=== PATIENT | male | born 1975 | race Caucasian/White ===

== ENCOUNTER 2019-02-03 08:30 | Inpatient (IN) | payer OTHER ==
[2019-02-03 08:51] VITALS: BMI 29.3
--- NOTE | 2019-02-03 09:16 | HP ---
COWS - Scale Resting Pulse: 1= [place] 81-100 Sweatin= Chills/Flushing Restless Observation: 1= Difficult to Sit Still Pupil Size: 1= Pupils >than Normal Bone or Joint Aches: 1= Mild Discomfort Runny Nose/ Eye Tearin= Runny Nose/Eyes GI Upset > 30mins: 1= Stomach Cramp Tremor Observation: 1= Tremor [place], Not Seen Yawning Observation: 1= 1-2x During Session Anxiety or Irritability: 2=Irritable/Anxious Goose Flesh Skin: 0=Smooth Skin COWS Score: 12 CIWA Score Nausea/Vomitin Muscle Tremors: 1-None Visible, but [place] Anxiety: 4-Mod. Anxious/Guarded Agitation: 3 Paroxysmal Sweats: No Perspiration Orientation: 2-Disoriented Date<2 days Tacttile Disturbances: 0-None Auditory Disturbances: 0-None Visual Disturbances: 0-None Headache: 3-Moderate CIWA-Ar Total Score: 16 - Admission Criteria OASAS Guidelines: Admission for Medically Managed Detox: Requires at least one of the followin. CIWA greater than 12 2. Seizures within the past 24 hours 3. Delirium tremens within the past 24 hours 4. Hallucinations within the past 24 hours 5. Acute intervention needed for co occurring medical disorder 6. Acute intervention needed for co occurring psychiatric disorder 7. Severe withdrawal that cannot be handled at a lower level of care (continued vomiting, continued diarrhea, abnormal vital signs) requiring intravenous medication and/or fluids 8. Admitting History and Physical - Admission Chief Complaint: " I want to stop drinking for myself and for my daughter" History of Present Illness: 43 year old male with history of opioid dependence with withdrawals. He was in methadone program at [facility] but left 11/2018 and then relapsed 3 weeks ago. Now he is using heroin 3-4 bags daily intranasally. Denies overdoses. He also has alcohol dependence with withdrawals. He is drinking 1-2 pints of vodka daily since 6 years old but became problematic at the age of 31's, last drank yesterday. He denies any blackouts or seizures but feels he needs a controlled environment to stop again and then proceed to rehabilitation and perhaps complete abstinence. However, he may decide to return to an MAT. He smokes ciggarettes 1/2 pack per day since the age of 20. PMH: HCV not treated, Kidney transplant due to CKD PSurg: Renal transplant 5 years ago. PSych: None He is homeless because threw him out of the house. He has 1 daughter and wants to get better for her. Patient has no legal issues pending. History Source: Patient Limitations to Obtaining History: No Limitations - Past Medical History Renal/: Yes: Renal Inusuff, Other (renal transplant recipient) Infectious Disease: Yes: Other (HCV Disease untreated) - Past Surgical History Past Surgical History: Yes: Appendectomy, Kidney Transplant - Advance Directives Advance Directives: No: Living Will, Health Care Proxy, DNR - Smoking History Smoking history: Current every day smoker Have you smoked in the past 12 months: Yes Aproximately how many cigarettes per day: 5 - Alcohol/Substance Use Hx Alcohol Use: Yes (1 pint per day of vodka) Number of Drinks Daily: 10 History of Substance Use: reports: Heroin Date of Last Use: 02/02/19 - Social History Usual Living Arrangement: Yes: Alone Do you think of yourself as: Straight/Heterosexual ADL: Independent Occupation: construction but unemployed now History of Recent Travel: No Admission [facility] Allergies/Adverse Reactions: Allergies Allergy/AdvReac Type Severity Reaction Status Date / Time No Known Allergies Allergy Verified 02/03/19 08:45 Exam Limitations: No Limitations - Ebola screening Have you traveled outside of the country in the last 21 days: No Have you had contact with anyone from an Ebola affected area: No Have you been sick,other than usual withdrawal symptoms: No Do you have a fever: No - Review of Systems Constitutional: Chills, Diaphoresis, Loss of Appetite, Changes in sleep EENT: reports: No Symptoms Reported Respiratory: reports: No Symptoms reported Cardiac: reports: No Symptoms Reported GI: reports: Nausea, Indigestion, Abdominal cramping : reports: No Symptoms Reported Musculoskeletal: reports: No Symptoms Reported Integumentary: reports: No Symptoms Reported Neuro: reports: No Symptoms reported Endocrine: reports: No Symptoms Reported Hematology: reports: No Symptoms Reported Psychiatric: reports: Judgement Intact, Mood/Affect Appropiate, Orientated x3 Other Systems: Reviewed and Negative Patient History - Patient Medical History Hx Anemia: No Hx Asthma: No Hx Chronic Obstructive Pulmonary Disease (COPD): No Hx Cancer: No Hx Cardiac Disorders: No Hx Congestive Heart Failure: No Hx Hypertension: No Hx Hypercholesterolemia: No Hx Pacemaker: No HX Cerebrovascular Accident: No Hx Seizures: No Hx Dementia: No Hx Diabetes: No Hx Gastrointestinal Disorders: No Hx Liver Disease: No Hx Genitourinary Disorders: No Hx Sexually Transmitted Disorders: No Hx Renal Disease (ESRD): Yes (renal transplant patient) Hx Thyroid Disease: No Hx Human Immunodeficiency Virus (HIV): No Hx Hepatitis C: Yes (positive and untreated) Hx Depression: No Hx Suicide Attempt: No Hx Bipolar Disorder: No Hx Schizophrenia: No - Patient Surgical History Past Surgical History: Yes Hx Abdominal Surgery: Yes (appendectomy) Other Surgical History: renal transplantation 5 years ago - PPD History Previous Implant?: Yes Documented Results: Negative w/o proof Implanted On Prior R Admission?: No Date: 01/29/18 ([facility]) Results: negative PPD to be Administered?: Yes - Smoking Cessation Smoking history: Current every day smoker Aproximately how many cigarettes per day: 5 Hx Chewing Tobacco Use: No Initiated information on smoking cessation: Yes 'Breaking Loose' booklet given: 02/03/19 - Substances abused Alcohol Substance route: Oral Frequency: Daily Amount used: 1 pint of vodka Age of first use: 20 Date of last use: 02/02/19 Heroin Substance route: Inhalation Frequency: Daily Amount used: 2 bags Age of first use: 20 Date of last use: 02/02/19 Admission Physical Exam BHS - Vital Signs Vital Signs: Vital Signs - 24 hr 02/03/19 08:45 Temperature 97.1 F L Pulse Rate 77 Respiratory 16 Rate Blood Pressure 160/105 H - Physical General Appearance: Yes: Mild Distress HEENTM: Yes: EOMI, Hearing grossly Normal, Normal ENT Inspection, Normocephalic , GLORIA, Pharynx Normal, Tm's normal Respiratory: Yes: Chest Non-Tender, Lungs Clear, Normal Breath Sounds, No Respiratory Distress, No Accessory Muscle Use Neck: Yes: Within Normal Limits, No masses,lesions,Nodules, Supple, Trachea in good position Breast: Yes: Within Normal Limits Cardiology: Yes: Regular Rhythm, Regular Rate, S1, S2 Abdominal: Yes: Non Tender, Soft, Increased Bowel Sounds, Protuberent Genitourinary: Yes: Within Normal Limits Back: Yes: Normal Inspection Musculoskeletal: Yes: full range of Motion, Gait Steady, Pelvis Stable Extremities: Yes: Normal Capillary Refill, Normal Inspection, Normal Range of Motion, Non-Tender Neurological: Yes: manager bench II-XII NML intact, Fully Oriented, Alert, Motor Strength 5/5, Normal Mood/Affect, Normal Response Integumentary: Yes: Normal Color, Warm - Diagnostic (1) Opioid dependence with withdrawal Current Visit: Yes Status: Acute (2) Alcohol dependence with withdrawal Current Visit: Yes Status: Acute (3) Nicotine dependence Current Visit: Yes Status: Acute (4) Kidney transplant recipient Current Visit: Yes Status: Acute Cleared for Admission [facility] - Detox or Rehab [facility] Level of Care: Medically Managed Detox Regimen/Protocol: Methadone/Librium Claeared for Rehab Admission: No Screened but not Admitted - Documentation of Visit Screened but not Admitted: No Breathalyzer - Breathalyzer Breathalyzer: 0 (last drank yesterday) Urine Drug Screen - Control Is test valid?: Yes - Results Drug screen NEGATIVE: No Urine drug screen results: MOP-Opiates, MTD-Methadone, BZO-Benzodiazepines Inpatient Rehab Admission - Rehab Decision to Admit Inpatient rehab admission?: No
[2019-02-03] MEDS ORDERED: hydrOXYzine PAMOATE 25 MG CAPSULE (FP) PO PRN (09:30)
[2019-02-03] MEDS ORDERED: chlordiazePOXIDE HCL 25 MG CAPSULE PO PRN (09:30)
[2019-02-03] MEDS ORDERED: METHOCARBAMOL 500 MG TABLET PO PRN (09:30)
[2019-02-03] MEDS ORDERED: MENTHOL/PHENOL 1 EACH UD MM PRN (09:30)
[2019-02-03] MEDS ORDERED: cloNIDine HCL 0.1 MG TABLET PO PRN (09:30)
[2019-02-03] MEDS ORDERED: ACETAMINOPHEN 325 MG TABLET (FP) PO PRN ×2 (09:30)
[2019-02-03] MEDS ORDERED: MAGNESIUM HYDROX 2400MG/30ML ORAL SUSPENSION 30 ML CUP PO PRN (09:30)
[2019-02-03] MEDS ORDERED: METHADONE HCL 10 MG TABLET (FOR DETOX USE ONLY) PO ONE (09:30)
[2019-02-03] MEDS ORDERED: MAGNESIUM CITRATE 300 ML BOTTLE PO PRN (09:30)
[2019-02-03] MEDS ORDERED: IBUPROFEN 400 MG TABLET (FP) PO PRN (09:30)
[2019-02-03] MEDS: chlordiazePOXIDE HCL 25 MG CAPSULE PO SCH ×3 (11:51→22:01)
[2019-02-03] MEDS: NICOTINE 14 MG/24 HOURS TOPICAL PATCH TD SCH (11:55)
[2019-02-03] MEDS: PRENATAL VITAMINS W/ FOLIC ACID TABLET (FP) PO SCH (11:55)
[2019-02-03 12:45] LABS: HEMATOCRIT 44.4 % (35.4-49); HEMOGLOBIN 15.1 GM/dL (11.7-16.9); MCH 30.3 pg (25.7-33.7); MEAN CELL VOLUME 89.1 fl (80-96); MEAN PLT VOLUME 9.2 fl (7.5-11.1); PLATELET COUNT 140 K/MM3 (134-434); RBC 4.98 M/mm3 (4.00-5.60); RDW 14.4 % (11.9-15.9); WHITE BLOOD COUNT 6.4 K/mm3 (4.0-10.0)
[2019-02-03 12:56] LABS: ALBUMIN 3.4 g/dl (3.4-5.0); BLOOD UREA NITROGEN 17.8 mg/dL (7-18); CREATININE 1.1 mg/dL (0.55-1.3); POTASSIUM 4.1 mmol/L (3.5-5.1); TOT PROT 9.2 g/dl (6.4-8.2)
[2019-02-03] MEDS: THIAMINE HCL 100 MG TABLET (FP) PO SCH (21:25)
[2019-02-04] MEDS: chlordiazePOXIDE HCL 25 MG CAPSULE PO SCH ×4 (05:59→22:01)
[2019-02-04] MEDS ORDERED: METHADONE HCL 10 MG TABLET (FOR DETOX USE ONLY) ONE (08:44)
[2019-02-04] MEDS ORDERED: METHADONE HCL 5 MG TABLET (FOR DETOX USE ONLY) ONE (08:44)
[2019-02-04] MEDS ORDERED: METHADONE (DETOX) 20 MG, METHADONE (DETOX) 5 MG PO ONE (10:00)
[2019-02-04] MEDS: PRENATAL VITAMINS W/ FOLIC ACID TABLET (FP) PO SCH (10:41)
[2019-02-04] MEDS: NICOTINE 14 MG/24 HOURS TOPICAL PATCH TD SCH (10:43)
--- NOTE | 2019-02-04 12:12 | PN ---
S CIWA - CIWA Score Nausea/Vomitin-Mild Nausea/No Vomiting Muscle Tremors: 2 Anxiety: 3 Agitation: 1-Slight > Activity Paroxysmal Sweats: 2 Orientation: 1-Uncertain about Date Tacttile Disturbances: 1-Very Mild Itch/Numbness Auditory Disturbances: 0-None Visual Disturbances: 0-None Headache: 1-Very Mild CIWA-Ar Total Score: 12 BHS COWS - Scale Resting Pulse: 0= [place] 80 or Below Sweatin= Chills/Flushing Restless Observation: 0= Sits Still Pupil Size: 0= Normal to Room Light Bone or Joint Aches: 1= Mild Discomfort Runny Nose/ Eye Tearin= Nasal Congestion GI Upset > 30mins: 1= Stomach Cramp Tremor Observation of Outstretched Hands: 2= Slight Tremor Visible Yawning Observation: 1= 1-2x During Session Anxiety or Irritability: 2=Irritable/Anxious Goose Flesh Skin: 3=Piloerection COWS Score: 12 S Progress Note (SOAP) Subjective: 43 years old male admitted on 02/03/19 for alcohol and opiate withdrawal sx management treated with librium and methadone detox regimen ate breakfast resting on bed feeling tired limited conversation with staff Objective: 02/04/19 12:12 Vital Signs Temperature 98.0 F 02/04/19 09:09 Pulse Rate 78 02/04/19 09:09 Respiratory Rate 18 02/04/19 09:09 Blood Pressure 147/94 02/04/19 09:09 O2 Sat by Pulse Oximetry (%) Laboratory Last Values WBC 6.4 K/mm3 (4.0-10.0) 02/03/19 09:30 RBC 4.98 M/mm3 (4.00-5.60) 02/03/19 09:30 Hgb 15.1 GM/dL (11.7-16.9) 02/03/19 09:30 Hct 44.4 % (35.4-49) 02/03/19 09:30 MCV 89.1 fl (80-96) 02/03/19 09:30 MCH 30.3 pg (25.7-33.7) 02/03/19 09:30 MCHC 34.0 g/dl (32.0-35.9) 02/03/19 09:30 RDW 14.4 % (11.9-15.9) 02/03/19 09:30 Plt Count 140 K/MM3 (134-434) 02/03/19 09:30 MPV 9.2 fl (7.5-11.1) 02/03/19 09:30 Sodium 134 mmol/L (136-145) L 02/03/19 09:30 Potassium 4.1 mmol/L (3.5-5.1) 02/03/19 09:30 Chloride 104 mmol/L (98-107) 02/03/19 09:30 Carbon Dioxide 26 mmol/L (21-32) 02/03/19 09:30 Anion Gap 4 MMOL/L (8-16) L 02/03/19 09:30 BUN 17.8 mg/dL (7-18) 02/03/19 09:30 Creatinine 1.1 mg/dL (0.55-1.3) 02/03/19 09:30 Est GFR (CKD-EPI)AfAm 95.46 02/03/19 09:30 Est GFR (CKD-EPI)NonAf 82.36 02/03/19 09:30 Random Glucose 106 mg/dL (74-106) 02/03/19 09:30 Calcium 9.0 mg/dL (8.5-10.1) 02/03/19 09:30 Total Bilirubin 1.0 mg/dL (0.2-1) 02/03/19 09:30 AST 61 U/L (15-37) H 02/03/19 09:30 ALT 43 U/L (13-61) 02/03/19 09:30 Alkaline Phosphatase 85 U/L (45-117) 02/03/19 09:30 Total Protein 9.2 g/dl (6.4-8.2) H 02/03/19 09:30 Albumin 3.4 g/dl (3.4-5.0) 02/03/19 09:30 RPR Titer Nonreactive (NONREACTIVE) 02/03/19 09:30 HIV 1&2 Antibody Screen Negative 02/03/19 10:20 HIV P24 Antigen Negative 02/03/19 10:20 lab noted Assessment: 02/04/19 12:12 alcohol and opiate withdrawal sx Plan: continue librium detox regimen
[2019-02-04] MEDS: THIAMINE HCL 100 MG TABLET (FP) PO SCH (22:01)
[2019-02-05] MEDS: chlordiazePOXIDE HCL 25 MG CAPSULE PO SCH ×4 (05:50→22:02)
[2019-02-05] MEDS ORDERED: METHADONE HCL 10 MG TABLET (FOR DETOX USE ONLY) PO ONE (10:00)
[2019-02-05] MEDS: PRENATAL VITAMINS W/ FOLIC ACID TABLET (FP) PO SCH (10:11)
[2019-02-05] MEDS: NICOTINE 14 MG/24 HOURS TOPICAL PATCH TD SCH (10:14)
--- NOTE | 2019-02-05 12:49 | PN ---
[facility] CIWA - CIWA Score Nausea/Vomitin-Mild Nausea/No Vomiting Muscle Tremors: 1-None Visible, but [place] Anxiety: 2 Agitation: 2 Paroxysmal Sweats: No Perspiration Orientation: 0-Oriented Tacttile Disturbances: 1-Very Mild Itch/Numbness Auditory Disturbances: 0-None Visual Disturbances: 0-None Headache: 1-Very Mild CIWA-Ar Total Score: 8 BHS COWS - Scale Resting Pulse: 1= [place] 81-100 Sweatin= No chills or Flushing Restless Observation: 1= Difficult to Sit Still Pupil Size: 1= Pupils >than Normal Bone or Joint Aches: 1= Mild Discomfort Runny Nose/ Eye Tearin= Nasal Congestion GI Upset > 30mins: 1= Stomach Cramp Tremor Observation of Outstretched Hands: 1= Tremor [place], Not Seen Yawning Observation: 1= 1-2x During Session Anxiety or Irritability: 1=Feels Anxious/Irritable Goose Flesh Skin: 0=Smooth Skin COWS Score: 9 [facility] Progress Note (SOAP) Subjective: alert,irrritable,anxious,interrupted sleep,pain in the body and back Objective: 02/05/19 12:53 Vital Signs Temperature 96.7 F L 02/05/19 09:06 Pulse Rate 83 02/05/19 09:06 Respiratory Rate 18 02/05/19 09:06 Blood Pressure 126/81 02/05/19 09:06 O2 Sat by Pulse Oximetry (%) Laboratory Last Values WBC 6.4 K/mm3 (4.0-10.0) 02/03/19 09:30 RBC 4.98 M/mm3 (4.00-5.60) 02/03/19 09:30 Hgb 15.1 GM/dL (11.7-16.9) 02/03/19 09:30 Hct 44.4 % (35.4-49) 02/03/19 09:30 MCV 89.1 fl (80-96) 02/03/19 09:30 MCH 30.3 pg (25.7-33.7) 02/03/19 09:30 MCHC 34.0 g/dl (32.0-35.9) 02/03/19 09:30 RDW 14.4 % (11.9-15.9) 02/03/19 09:30 Plt Count 140 K/MM3 (134-434) 02/03/19 09:30 MPV 9.2 fl (7.5-11.1) 02/03/19 09:30 Sodium 134 mmol/L (136-145) L 02/03/19 09:30 Potassium 4.1 mmol/L (3.5-5.1) 02/03/19 09:30 Chloride 104 mmol/L (98-107) 02/03/19 09:30 Carbon Dioxide 26 mmol/L (21-32) 02/03/19 09:30 Anion Gap 4 MMOL/L (8-16) L 02/03/19 09:30 BUN 17.8 mg/dL (7-18) 02/03/19 09:30 Creatinine 1.1 mg/dL (0.55-1.3) 02/03/19 09:30 Est GFR (CKD-EPI)AfAm 95.46 02/03/19 09:30 Est GFR (CKD-EPI)NonAf 82.36 02/03/19 09:30 Random Glucose 106 mg/dL (74-106) 02/03/19 09:30 Calcium 9.0 mg/dL (8.5-10.1) 02/03/19 09:30 Total Bilirubin 1.0 mg/dL (0.2-1) 02/03/19 09:30 AST 61 U/L (15-37) H 02/03/19 09:30 ALT 43 U/L (13-61) 02/03/19 09:30 Alkaline Phosphatase 85 U/L (45-117) 02/03/19 09:30 Total Protein 9.2 g/dl (6.4-8.2) H 02/03/19 09:30 Albumin 3.4 g/dl (3.4-5.0) 02/03/19 09:30 RPR Titer Nonreactive (NONREACTIVE) 02/03/19 09:30 HIV 1&2 Antibody Screen Negative 02/03/19 10:20 HIV P24 Antigen Negative 02/03/19 10:20 Assessment: 02/05/19 12:53 withdrawal symptom Plan: continue detox methadone and librium regimen
[2019-02-05] MEDS: BACITRACIN 15 GM TUBE TOPICAL OINTMENT TP SCH (17:41)
[2019-02-05] MEDS: MELATONIN 5 MG TABLETS PO PRN (22:02)
[2019-02-05] MEDS: THIAMINE HCL 100 MG TABLET (FP) PO SCH (22:02)
[2019-02-06] MEDS ORDERED: chlordiazePOXIDE HCL 10 MG CAPSULE PO PRN
[2019-02-06] MEDS: chlordiazePOXIDE HCL 10 MG CAPSULE PO SCH ×4 (05:33→22:35)
[2019-02-06] MEDS: MAG HYDROX/AL HYDROX/SIMETH 30 ML UNIT-DOSE CUP PO PRN (05:34)
[2019-02-06] MEDS ORDERED: METHADONE HCL 10 MG TABLET (FOR DETOX USE ONLY) ONE (08:54)
[2019-02-06] MEDS ORDERED: METHADONE HCL 5 MG TABLET (FOR DETOX USE ONLY) ONE (08:54)
[2019-02-06] MEDS: BISMUTH SUBSALICYLATE 262 MG/15 ML BTL PO PRN (09:23)
[2019-02-06] MEDS ORDERED: METHADONE (DETOX) 10 MG, METHADONE (DETOX) 5 MG PO ONE (10:00)
[2019-02-06] MEDS: PRENATAL VITAMINS W/ FOLIC ACID TABLET (FP) PO SCH (10:42)
[2019-02-06] MEDS: NICOTINE 14 MG/24 HOURS TOPICAL PATCH TD SCH (10:44)
[2019-02-06] MEDS: BACITRACIN 15 GM TUBE TOPICAL OINTMENT TP SCH (10:45)
--- NOTE | 2019-02-06 12:07 | PN ---
[facility] CIWA - CIWA Score Nausea/Vomitin-No Nausea/No Vomiting Muscle Tremors: None Anxiety: 2 Agitation: 0-Normal Activity Paroxysmal Sweats: 3 Orientation: 0-Oriented Tacttile Disturbances: 0-None Auditory Disturbances: 0-None Visual Disturbances: 0-None Headache: 2-Mild CIWA-Ar Total Score: 7 S COWS - Scale Resting Pulse: 0= [place] 80 or Below Sweatin= Beads of Sweat on Face Restless Observation: 1= Difficult to Sit Still Pupil Size: 0= Normal to Room Light Bone or Joint Aches: 0= None Runny Nose/ Eye Tearin= None GI Upset > 30mins: 0= None Tremor Observation of Outstretched Hands: 0= None Yawning Observation: 1= 1-2x During Session Anxiety or Irritability: 2=Irritable/Anxious Goose Flesh Skin: 0=Smooth Skin COWS Score: 7 [facility] Progress Note (SOAP) Subjective: c/o sweats, anxiety, irritability, and headache. Objective: 02/06/19 12:06 Vital Signs 02/06/19 02/06/19 06:11 09:27 Temperature 97.1 F L 97.6 F Pulse Rate 79 85 Respiratory 18 18 Rate Blood Pressure 119/74 118/80 Lab Results WBC 6.4 K/mm3 (4.0-10.0) 02/03/19 09:30 RBC 4.98 M/mm3 (4.00-5.60) 02/03/19 09:30 Hgb 15.1 GM/dL (11.7-16.9) 02/03/19 09:30 Hct 44.4 % (35.4-49) 02/03/19 09:30 MCV 89.1 fl (80-96) 02/03/19 09:30 MCHC 34.0 g/dl (32.0-35.9) 02/03/19 09:30 RDW 14.4 % (11.9-15.9) 02/03/19 09:30 Plt Count 140 K/MM3 (134-434) 02/03/19 09:30 Sodium 134 mmol/L (136-145) L 02/03/19 09:30 Potassium 4.1 mmol/L (3.5-5.1) 02/03/19 09:30 Chloride 104 mmol/L (98-107) 02/03/19 09:30 Carbon Dioxide 26 mmol/L (21-32) 02/03/19 09:30 Anion Gap 4 MMOL/L (8-16) L 02/03/19 09:30 BUN 17.8 mg/dL (7-18) 02/03/19 09:30 Creatinine 1.1 mg/dL (0.55-1.3) 02/03/19 09:30 Random Glucose 106 mg/dL (74-106) 02/03/19 09:30 Calcium 9.0 mg/dL (8.5-10.1) 02/03/19 09:30 Labs noted. Assessment: 02/06/19 12:06 AOX3, in no acute respiratory distress. Full rom, ambulating in the unit. Withdrawal symptoms. Plan: continue detox.
[2019-02-06] MEDS: THIAMINE HCL 100 MG TABLET (FP) PO SCH (22:35)
[2019-02-06] MEDS: MELATONIN 5 MG TABLETS PO PRN (22:36)
[2019-02-07] MEDS: MAG HYDROX/AL HYDROX/SIMETH 30 ML UNIT-DOSE CUP PO PRN ×3 (02:11→21:37)
[2019-02-07] MEDS: BISMUTH SUBSALICYLATE 262 MG/15 ML BTL PO PRN ×3 (05:51→16:23)
[2019-02-07] MEDS: chlordiazePOXIDE HCL 10 MG CAPSULE PO SCH ×2 (06:17→17:22)
[2019-02-07] MEDS ORDERED: METHADONE HCL 10 MG TABLET (FOR DETOX USE ONLY) PO ONE (10:00)
[2019-02-07] MEDS: NICOTINE 14 MG/24 HOURS TOPICAL PATCH TD SCH (10:27)
[2019-02-07] MEDS: PRENATAL VITAMINS W/ FOLIC ACID TABLET (FP) PO SCH (10:27)
[2019-02-07] MEDS: BACITRACIN 15 GM TUBE TOPICAL OINTMENT TP SCH (10:27)
--- NOTE | 2019-02-07 13:04 | PN ---
S CIWA - CIWA Score Nausea/Vomitin-No Nausea/No Vomiting Muscle Tremors: 2 Anxiety: 1-Mildly Anxious Agitation: 1-Slight > Activity Paroxysmal Sweats: 1-Minimal [place] Moist Orientation: 0-Oriented Tacttile Disturbances: 0-None Auditory Disturbances: 0-None Visual Disturbances: 0-None Headache: 0-None Present CIWA-Ar Total Score: 5 BHS COWS - Scale Resting Pulse: 1= [place] 81-100 Sweatin= No chills or [place] Restless Observation: 0= Sits Still Pupil Size: 0= Normal to Room Light Bone or Joint Aches: 1= Mild Discomfort Runny Nose/ Eye Tearin= Nasal Congestion GI Upset > 30mins: 0= None Tremor Observation of Outstretched Hands: 1= Tremor [place], Not Seen Yawning Observation: 0= None Anxiety or Irritability: 1=Feels Anxious/Irritable Goose Flesh Skin: 0=Smooth Skin COWS Score: 5 S Progress Note (SOAP) Subjective: 43 years old male admitted on 02/03/19 for alcohol and opiate withdrawal sx management treated with librium and methadone detox regimen patient tolerated well sitting on the edge of the bed eating breakfast feeling better less tremor mild body ache Objective: 02/07/19 13:03 Vital Signs Temperature 96.4 F L 02/07/19 09:10 Pulse Rate 83 02/07/19 09:10 Respiratory Rate 18 02/07/19 09:10 Blood Pressure 125/86 02/07/19 09:10 O2 Sat by Pulse Oximetry (%) Laboratory Last Values WBC 6.4 K/mm3 (4.0-10.0) 02/03/19 09:30 RBC 4.98 M/mm3 (4.00-5.60) 02/03/19 09:30 Hgb 15.1 GM/dL (11.7-16.9) 02/03/19 09:30 Hct 44.4 % (35.4-49) 02/03/19 09:30 MCV 89.1 fl (80-96) 02/03/19 09:30 MCH 30.3 pg (25.7-33.7) 02/03/19 09:30 MCHC 34.0 g/dl (32.0-35.9) 02/03/19 09:30 RDW 14.4 % (11.9-15.9) 02/03/19 09:30 Plt Count 140 K/MM3 (134-434) 02/03/19 09:30 MPV 9.2 fl (7.5-11.1) 02/03/19 09:30 Sodium 134 mmol/L (136-145) L 02/03/19 09:30 Potassium 4.1 mmol/L (3.5-5.1) 02/03/19 09:30 Chloride 104 mmol/L (98-107) 02/03/19 09:30 Carbon Dioxide 26 mmol/L (21-32) 02/03/19 09:30 Anion Gap 4 MMOL/L (8-16) L 02/03/19 09:30 BUN 17.8 mg/dL (7-18) 02/03/19 09:30 Creatinine 1.1 mg/dL (0.55-1.3) 02/03/19 09:30 Est GFR (CKD-EPI)AfAm 95.46 02/03/19 09:30 Est GFR (CKD-EPI)NonAf 82.36 02/03/19 09:30 Random Glucose 106 mg/dL (74-106) 02/03/19 09:30 Calcium 9.0 mg/dL (8.5-10.1) 02/03/19 09:30 Total Bilirubin 1.0 mg/dL (0.2-1) 02/03/19 09:30 AST 61 U/L (15-37) H 02/03/19 09:30 ALT 43 U/L (13-61) 02/03/19 09:30 Alkaline Phosphatase 85 U/L (45-117) 02/03/19 09:30 Total Protein 9.2 g/dl (6.4-8.2) H 02/03/19 09:30 Albumin 3.4 g/dl (3.4-5.0) 02/03/19 09:30 RPR Titer Nonreactive (NONREACTIVE) 02/03/19 09:30 HIV 1&2 Antibody Screen Negative 02/03/19 10:20 HIV P24 Antigen Negative 02/03/19 10:20 lab noted Assessment: 02/07/19 13:03 alcohol and opiate withdrawal sx Plan: continue librium and methadone detox
[2019-02-07] MEDS: MELATONIN 5 MG TABLETS PO PRN (21:37)
[2019-02-07] MEDS: THIAMINE HCL 100 MG TABLET (FP) PO SCH (21:37)
[2019-02-08] MEDS ORDERED: chlordiazePOXIDE HCL 10 MG CAPSULE PO ONE (05:00)
[2019-02-08] MEDS: MAG HYDROX/AL HYDROX/SIMETH 30 ML UNIT-DOSE CUP PO PRN ×2 (05:26→13:08)
[2019-02-08] MEDS ORDERED: METHADONE HCL 5 MG TABLET (FOR DETOX USE ONLY) PO ONE (06:00)
[2019-02-08 09:26] VITALS: BP 122/68; PULSE 108; TEMP 98.7
[2019-02-08] MEDS: BACITRACIN 15 GM TUBE TOPICAL OINTMENT TP SCH (10:24)
[2019-02-08] MEDS: PRENATAL VITAMINS W/ FOLIC ACID TABLET (FP) PO SCH (10:24)
[2019-02-08] MEDS: NICOTINE 14 MG/24 HOURS TOPICAL PATCH TD SCH (10:42)
--- NOTE | 2019-02-08 12:13 | DS ---
[facility] Detox Discharge Summary Admission Date: 02/03/19 Discharge Date: 02/08/19 - History Present History: Alcohol Dependence, Opioid Dependence Additional Comments: 43 years old male admitted on 02/03/19 for alcohol and opiate withdrawal sx management treated with librium and methadone detox regimen patient is alert oriented x 3 cardiac S1S2 regular rate rhythm respiratory clear lung bilaterally on auscultation abdomen soft no rebound tenderness - Physical Exam Results Vital Signs: Vital Signs Temperature 98.7 F 02/08/19 09:25 Pulse Rate 108 H 02/08/19 09:25 Respiratory Rate 18 02/08/19 09:25 Blood Pressure 122/68 02/08/19 09:25 O2 Sat by Pulse Oximetry (%) Pertinent Admission Physical Exam Findings: alcohol and opiate withdrawal sx Laboratory Last Values WBC 6.4 K/mm3 (4.0-10.0) 02/03/19 09:30 RBC 4.98 M/mm3 (4.00-5.60) 02/03/19 09:30 Hgb 15.1 GM/dL (11.7-16.9) 02/03/19 09:30 Hct 44.4 % (35.4-49) 02/03/19 09:30 MCV 89.1 fl (80-96) 02/03/19 09:30 MCH 30.3 pg (25.7-33.7) 02/03/19 09:30 MCHC 34.0 g/dl (32.0-35.9) 02/03/19 09:30 RDW 14.4 % (11.9-15.9) 02/03/19 09:30 Plt Count 140 K/MM3 (134-434) 02/03/19 09:30 MPV 9.2 fl (7.5-11.1) 02/03/19 09:30 Sodium 134 mmol/L (136-145) L 02/03/19 09:30 Potassium 4.1 mmol/L (3.5-5.1) 02/03/19 09:30 Chloride 104 mmol/L (98-107) 02/03/19 09:30 Carbon Dioxide 26 mmol/L (21-32) 02/03/19 09:30 Anion Gap 4 MMOL/L (8-16) L 02/03/19 09:30 BUN 17.8 mg/dL (7-18) 02/03/19 09:30 Creatinine 1.1 mg/dL (0.55-1.3) 02/03/19 09:30 Est GFR (CKD-EPI)AfAm 95.46 02/03/19 09:30 Est GFR (CKD-EPI)NonAf 82.36 02/03/19 09:30 Random Glucose 106 mg/dL (74-106) 02/03/19 09:30 Calcium 9.0 mg/dL (8.5-10.1) 02/03/19 09:30 Total Bilirubin 1.0 mg/dL (0.2-1) 02/03/19 09:30 AST 61 U/L (15-37) H 02/03/19 09:30 ALT 43 U/L (13-61) 02/03/19 09:30 Alkaline Phosphatase 85 U/L (45-117) 02/03/19 09:30 Total Protein 9.2 g/dl (6.4-8.2) H 02/03/19 09:30 Albumin 3.4 g/dl (3.4-5.0) 02/03/19 09:30 RPR Titer Nonreactive (NONREACTIVE) 02/03/19 09:30 HIV 1&2 Antibody Screen Negative 02/03/19 10:20 HIV P24 Antigen Negative 02/03/19 10:20 lab noted - Treatment Hospital Course: Detox Protocol Followed, Detoxed Safely, Responded well, Discharged Condition Good, Rehab Referral Accepted Patient has Accepted a Rehab Referral to: [facility] - Medication Discharge Medications: Ambulatory Orders NK [No Known Home Medication] 02/03/19 - Diagnosis (1) Alcohol dependence with withdrawal Current Visit: Yes Status: Acute Qualifiers: Complication of substance-induced condition: uncomplicated Qualified Code(s ): F10.230 - Alcohol dependence with withdrawal, uncomplicated (2) Kidney transplant recipient Current Visit: Yes Status: Resolved (3) Nicotine dependence Current Visit: Yes Status: Acute Qualifiers: Nicotine product type: cigarettes Substance use status: in withdrawal Qualified Code(s): F17.213 - Nicotine dependence, cigarettes, with withdrawal (4) Opioid dependence with withdrawal Current Visit: Yes Status: Acute - AMA Did Patient Leave Against Medical Advice: No CIWA Score - CIWA Score Nausea/Vomitin-No Nausea/No Vomiting Muscle Tremors: 1-None Visible, but [place] Anxiety: 0-No Anxiety, at Ease Agitation: 0-Normal Activity Paroxysmal Sweats: 1-Minimal Palms Moist Orientation: 0-Oriented Tacttile Disturbances: 0-None Auditory Disturbances: 0-None Visual Disturbances: 0-None Headache: 0-None Present CIWA-Ar Total Score: 2 COWS (PN) - Opiate Withdrawal Resting Pulse: 2= [place] 101-120 Sweatin= Chills/Flushing Restless Observation: 0= Sits Still Pupil Size: 0= Normal to Room Light Bone or Joint Aches: 0= None Runny Nose/ Eye Tearin= None GI Upset > 30mins: 0= None Tremor Observation of Outstretched Hands: 0= None Yawning Observation: 0= None Anxiety or Irritability: 0= None Goose Flesh Skin: 0=Smooth Skin COWS Score: 3
== END 2019-02-08 13:32 | disposition home or self-care (01) | DRG 773 ==
LOC: YASAS 08:30 → Y3N 09:45
PROVIDERS: ADMIT Allergy & Immunology; ATTEND Allergy & Immunology
PROC: HZ2ZZZZ Detoxification Services for Substance Abuse Treatment (ICD-10-PCS; principal; 2019-02-03)
DX: F10.230 Alcohol dependence with withdrawal, uncomplicated (principal); F11.23 Opioid dependence with withdrawal; F17.213 Nicotine dependence, cigarettes, with withdrawal; B18.2 Chronic viral hepatitis C; Z94.0 Kidney transplant status; Z59.0 Homelessness
CPT/HCPCS: 36415; 80053; 85027; 86593; 87389

== ENCOUNTER 2020-03-27 08:14 | Inpatient (IN) | payer OTHER ==
[2020-03-27 08:37] VITALS: BMI 29.9
[2020-03-27] MEDS ORDERED: NICOTINE POLACRILEX 2 MG GUM BUC PRN (09:31)
[2020-03-27] MEDS ORDERED: ONDANSETRON *ODT* 4 MG TABLET SL PRN (09:31)
[2020-03-27] MEDS ORDERED: cloNIDine HCL 0.1 MG TABLET PO PRN (09:31)
[2020-03-27] MEDS ORDERED: chlordiazePOXIDE HCL 25 MG CAPSULE PO PRN (09:31)
[2020-03-27] MEDS ORDERED: methaDONE HCL 10 MG TABLET (FOR DETOX USE ONLY) PO ONE (09:31)
[2020-03-27] MEDS ORDERED: ACETAMINOPHEN 325 MG TABLET (FP) PO PRN ×2 (09:31)
[2020-03-27] MEDS ORDERED: MAG HYDROX/AL HYDROX/SIMETH 30 ML UNIT-DOSE CUP PO PRN (09:31)
[2020-03-27] MEDS ORDERED: MAGNESIUM CITRATE 300 ML BOTTLE PO PRN (09:31)
[2020-03-27] MEDS ORDERED: IBUPROFEN 400 MG TABLET (FP) PO PRN (09:31)
[2020-03-27] MEDS ORDERED: MAGNESIUM HYDROX 2400MG/30ML ORAL SUSPENSION 30 ML CUP PO PRN (09:31)
[2020-03-27] MEDS ORDERED: MENTHOL/PHENOL 1 EACH UD MM PRN (09:31)
[2020-03-27] MEDS ORDERED: BISMUTH SUBSALICYLATE 262 MG/15 ML BTL PO PRN (09:31)
[2020-03-27] MEDS: PRENATAL VITAMINS W/ FOLIC ACID TABLET (FP) PO SCH (10:44)
[2020-03-27] MEDS: hydrOXYzine PAMOATE 25 MG CAPSULE (FP) PO SCH ×4 (10:47→22:22)
[2020-03-27] MEDS: chlordiazePOXIDE HCL 25 MG CAPSULE PO SCH ×3 (10:47→22:23)
[2020-03-27 14:52] LABS: HEMATOCRIT 44.7 % (35.4-49); HEMOGLOBIN 15.1 GM/dL (11.7-16.9); MCH 30.1 pg (25.7-33.7); MCHC 33.8 g/dl (32.0-35.9); MEAN CELL VOLUME 89.1 fl (80-96); MEAN PLT VOLUME 9.2 fl (7.5-11.1); PLATELET COUNT 122 K/MM3 (134-434); RBC 5.02 M/mm3 (4.00-5.60); RDW 14.1 % (11.9-15.9); WHITE BLOOD COUNT 7.5 K/mm3 (4.0-10.0)
[2020-03-27 14:55] LABS: CALCIUM 9.5 mg/dL (8.5-10.1)
[2020-03-27 14:57] LABS: ALBUMIN 3.5 g/dl (3.4-5.0); BLOOD UREA NITROGEN 12.1 mg/dL (7-18)
[2020-03-27 14:59] LABS: CREATININE 1.2 mg/dL (0.55-1.3)
[2020-03-27 15:00] LABS: BILIRUBIN,TOTAL 1.3 mg/dL (0.2-1); TOT PROT 10.1 g/dl (6.4-8.2)
[2020-03-27 15:46] LABS: HIV INTERPRETATION NEGATIVE (NEGATIVE)
[2020-03-27] MEDS: THIAMINE HCL 100 MG TABLET (FP) PO SCH (22:22)
[2020-03-27] MEDS: MELATONIN 5 MG TABLETS PO SCH (22:23)
[2020-03-28] MEDS: hydrOXYzine PAMOATE 25 MG CAPSULE (FP) PO SCH ×5 (05:37→21:45)
[2020-03-28] MEDS: chlordiazePOXIDE HCL 25 MG CAPSULE PO SCH (05:37)
[2020-03-28] MEDS ORDERED: methaDONE HCL 10 MG TABLET (FOR DETOX USE ONLY) ONE (08:36)
[2020-03-28] MEDS ORDERED: LORazepam 1 MG TABLET PO PRN (10:22)
[2020-03-28] MEDS: PRENATAL VITAMINS W/ FOLIC ACID TABLET (FP) PO SCH (10:32)
[2020-03-28] MEDS: LORazepam 2 MG TABLET PO SCH ×3 (11:20→22:26)
[2020-03-28] MEDS: NICOTINE 21 MG/24 HOURS TOPICAL PATCH TD SCH (12:40)
[2020-03-28] MEDS: METHOCARBAMOL 500 MG TABLET PO PRN (21:45)
[2020-03-28] MEDS: THIAMINE HCL 100 MG TABLET (FP) PO SCH (21:45)
[2020-03-28] MEDS: MELATONIN 5 MG TABLETS PO SCH (22:27)
[2020-03-29] MEDS ORDERED: chlordiazePOXIDE HCL 25 MG CAPSULE PO SCH (05:00)
[2020-03-29] MEDS: hydrOXYzine PAMOATE 25 MG CAPSULE (FP) PO SCH ×2 (05:37→09:23)
[2020-03-29] MEDS: LORazepam 2 MG TABLET PO SCH ×4 (05:37→22:54)
[2020-03-29] MEDS: NICOTINE 21 MG/24 HOURS TOPICAL PATCH TD SCH (09:23)
[2020-03-29] MEDS ORDERED: methaDONE HCL 10 MG TABLET (FOR DETOX USE ONLY) PO ONE (10:00)
[2020-03-29] MEDS: PRENATAL VITAMINS W/ FOLIC ACID TABLET (FP) PO SCH (10:32)
[2020-03-29] MEDS ORDERED: LACTULOSE 20 GM/30 ML UDC (FOR ORAL USE ONLY) PO ONE (16:04)
[2020-03-29] MEDS: THIAMINE HCL 100 MG TABLET (FP) PO SCH (22:45)
[2020-03-29] MEDS: LACTULOSE 20 GM/30 ML UDC (FOR ORAL USE ONLY) PO SCH (22:45)
[2020-03-29] MEDS: MELATONIN 5 MG TABLETS PO SCH (22:54)
[2020-03-30] MEDS ORDERED: chlordiazePOXIDE HCL 10 MG CAPSULE PO PRN
[2020-03-30] MEDS ORDERED: chlordiazePOXIDE HCL 10 MG CAPSULE PO SCH (05:00)
[2020-03-30] MEDS ORDERED: chlordiazePOXIDE HCL 25 MG CAPSULE PO SCH (05:00)
[2020-03-30] MEDS: LACTULOSE 20 GM/30 ML UDC (FOR ORAL USE ONLY) PO SCH ×5 (06:13→22:20)
[2020-03-30] MEDS: LORazepam 1 MG TABLET PO SCH ×4 (06:13→22:20)
[2020-03-30] MEDS ORDERED: methaDONE HCL 10 MG TABLET (FOR DETOX USE ONLY) ONE (08:27)
[2020-03-30] MEDS: NICOTINE 21 MG/24 HOURS TOPICAL PATCH TD SCH (10:13)
[2020-03-30] MEDS: PRENATAL VITAMINS W/ FOLIC ACID TABLET (FP) PO SCH (10:13)
[2020-03-30] MEDS: METHOCARBAMOL 500 MG TABLET PO PRN (13:13)
[2020-03-30] MEDS: MELATONIN 5 MG TABLETS PO SCH (22:20)
[2020-03-30] MEDS: THIAMINE HCL 100 MG TABLET (FP) PO SCH (22:20)
[2020-03-31] MEDS ORDERED: LORazepam 0.5 MG TABLET PO PRN
[2020-03-31] MEDS ORDERED: chlordiazePOXIDE HCL 10 MG CAPSULE PO SCH ×2 (05:00)
[2020-03-31] MEDS: LORazepam 0.5 MG TABLET PO SCH ×2 (05:31→10:03)
[2020-03-31 09:01] VITALS: TEMP 97.8
[2020-03-31] MEDS ORDERED: methaDONE HCL 10 MG TABLET (FOR DETOX USE ONLY) PO ONE (10:00)
[2020-03-31] MEDS: PRENATAL VITAMINS W/ FOLIC ACID TABLET (FP) PO SCH (10:03)
[2020-03-31] MEDS: NICOTINE 21 MG/24 HOURS TOPICAL PATCH TD SCH (10:03)
[2020-03-31] MEDS: METHOCARBAMOL 500 MG TABLET PO PRN (10:03)
[2020-03-31] MEDS: LACTULOSE 20 GM/30 ML UDC (FOR ORAL USE ONLY) PO SCH ×2 (10:03→13:29)
[2020-03-31 12:49] VITALS: BP 136/92; PULSE 102
[2020-04-01] MEDS ORDERED: chlordiazePOXIDE HCL 10 MG CAPSULE PO ONE (05:00)
[2020-04-01] MEDS ORDERED: LORazepam 0.5 MG TABLET PO ONE (05:00)
[2020-04-01] MEDS ORDERED: chlordiazePOXIDE HCL 10 MG CAPSULE PO SCH (05:00)
[2020-04-02] MEDS ORDERED: LORazepam 0.5 MG TABLET PO ONE (05:00)
[2020-04-02] MEDS ORDERED: chlordiazePOXIDE HCL 10 MG CAPSULE PO SCH (05:00)
[2020-04-03] MEDS ORDERED: chlordiazePOXIDE HCL 10 MG CAPSULE PO ONE (05:00)
[2020-04-03] MEDS ORDERED: LORazepam 0.5 MG TABLET PO ONE (05:00)
== END 2020-03-31 13:50 | disposition home or self-care (01) | DRG 773 ==
LOC: YASAS 08:14 → Y3N 09:46
PROVIDERS: ADMIT Allergy & Immunology; ATTEND Allergy & Immunology
PROC: HZ2ZZZZ Detoxification Services for Substance Abuse Treatment (ICD-10-PCS; principal; 2020-03-27)
DX: F11.23 Opioid dependence with withdrawal (principal); F10.230 Alcohol dependence with withdrawal, uncomplicated; F14.10 Cocaine abuse, uncomplicated; F17.210 Nicotine dependence, cigarettes, uncomplicated; F19.280 Other psychoactive substance dependence with psychoactive substance-induced anxiety disorder; F19.282 Other psychoactive substance dependence with psychoactive substance-induced sleep disorder; F19.24 Other psychoactive substance dependence with psychoactive substance-induced mood disorder; E72.20 Disorder of urea cycle metabolism, unspecified; I10 Essential (primary) hypertension; N18.9 Chronic kidney disease, unspecified; Z94.0 Kidney transplant status; R74.01 Elevation of levels of liver transaminase levels; R76.11 Nonspecific reaction to tuberculin skin test without active tuberculosis; Z98.890 Other specified postprocedural states; Z59.0 Homelessness
CPT/HCPCS: 36415; 71046-TC-FY; 80053; 82140; 85027; 86780; 87389; C9803; J0735; U0003

== ENCOUNTER 2020-11-08 13:13 | Inpatient (IN) | payer OTHER ==
[2020-11-08 16:28] VITALS: BMI 32.1
[2020-11-08] MEDS ORDERED: BISMUTH SUBSALICYLATE 524 MG/30 ML PO PRN (16:49)
[2020-11-08] MEDS ORDERED: ONDANSETRON *ODT* 4 MG TABLET SL PRN (16:49)
[2020-11-08] MEDS ORDERED: MAGNESIUM HYDROX 2400MG/30ML ORAL SUSPENSION 30 ML CUP PO PRN (16:49)
[2020-11-08] MEDS ORDERED: MENTHOL/PHENOL 1 EACH UD MM PRN (16:49)
[2020-11-08] MEDS ORDERED: hydrOXYzine PAMOATE 25 MG CAPSULE (FP) PO PRN (16:49)
[2020-11-08] MEDS ORDERED: IBUPROFEN 400 MG TABLET (FP) PO PRN (16:49)
[2020-11-08] MEDS ORDERED: METHOCARBAMOL 500 MG TABLET PO PRN (16:49)
[2020-11-08] MEDS ORDERED: MAGNESIUM CITRATE 300 ML BOTTLE PO PRN (16:49)
[2020-11-08] MEDS ORDERED: ACETAMINOPHEN 325 MG TABLET (FP) PO PRN ×2 (16:49)
[2020-11-08] MEDS ORDERED: diazePAM 5 MG TABLET ONE (18:17)
[2020-11-08] MEDS ORDERED: METHOCARBAMOL 500 MG TABLET ONE (18:17)
[2020-11-08] MEDS: diazePAM 5 MG TABLET PO SCH ×2 (18:20→22:20)
[2020-11-08] MEDS ORDERED: MELATONIN 5 MG TABLETS PO SCH (22:00)
[2020-11-08] MEDS: THIAMINE HCL 100 MG TABLET (FP) PO SCH (22:18)
[2020-11-09] MEDS: diazePAM 5 MG TABLET PO SCH ×4 (06:49→22:50)
[2020-11-09] MEDS ORDERED: methaDONE HCL 10 MG TABLET PO ONE (09:50)
[2020-11-09] MEDS ORDERED: methaDONE 40 MG, methaDONE 20 MG PO ONE (10:10)
[2020-11-09] MEDS ORDERED: methaDONE HCL 10 MG TABLET ONE (10:40)
[2020-11-09] MEDS ORDERED: methaDONE HCL 40 MG DISPERSABLE TABLET ONE (10:41)
[2020-11-09] MEDS: PRENATAL VITAMINS W/ FOLIC ACID TABLET (FP) PO SCH (11:30)
[2020-11-09 12:08] LABS: HEMATOCRIT 42.9 % (35.4-49); HEMOGLOBIN 14.8 GM/dL (11.7-16.9); MCH 30.6 pg (25.7-33.7); MCHC 34.5 g/dl (32.0-35.9); MEAN CELL VOLUME 88.9 fl (80-96); MEAN PLT VOLUME 8.9 fl (7.5-11.1); PLATELET COUNT 110 10^3/uL (134-434); RBC 4.83 M/mm3 (4.00-5.60); RDW 14.4 % (11.9-15.9); WHITE BLOOD COUNT 5.7 K/mm3 (4.0-10.0)
[2020-11-09 12:15] LABS: ALBUMIN 3.3 g/dl (3.4-5.0); CALCIUM 9.3 mg/dL (8.5-10.1)
[2020-11-09 12:16] LABS: BLOOD UREA NITROGEN 15.2 mg/dL (7-18)
[2020-11-09 12:19] LABS: CREATININE 1.2 mg/dL (0.55-1.3)
[2020-11-09 12:20] LABS: TOT PROT 8.7 g/dl (6.4-8.2)
[2020-11-09] MEDS: NICOTINE 10 MG CARTRIDGE (INHALER) IH PRN ×2 (13:03→20:52)
[2020-11-09] MEDS ORDERED: SUVOREXANT 10 MG TABLET PO PRN (22:00)
[2020-11-09] MEDS: THIAMINE HCL 100 MG TABLET (FP) PO SCH (22:48)
[2020-11-10] MEDS: MAG HYDROX/AL HYDROX/SIMETH 30 ML UNIT-DOSE CUP PO PRN ×2 (00:48→23:34)
[2020-11-10] MEDS ORDERED: methaDONE HCL 40 MG DISPERSABLE TABLET ONE (04:17)
[2020-11-10] MEDS ORDERED: methaDONE HCL 10 MG TABLET ONE (04:17)
[2020-11-10] MEDS ORDERED: methaDONE HCL 40 MG DISPERSABLE TABLET PO SCH (06:00)
[2020-11-10] MEDS: methaDONE 40 MG, methaDONE 20 MG PO SCH (06:06)
[2020-11-10] MEDS: diazePAM 5 MG TABLET PO SCH ×3 (06:07→22:13)
[2020-11-10] MEDS ORDERED: diphenhydrAMINE HCL 25 MG CAPSULE (FP) PO ONE (10:25)
[2020-11-10] MEDS ORDERED: HYDROCORTISONE 2.5% TOPICAL CREAM 30 GM TUBE TP SCH (10:30)
[2020-11-10] MEDS: PRENATAL VITAMINS W/ FOLIC ACID TABLET (FP) PO SCH (10:37)
[2020-11-10] MEDS: diazePAM 5 MG TABLET PO PRN (10:37)
[2020-11-10] MEDS: NICOTINE 10 MG CARTRIDGE (INHALER) IH PRN ×2 (15:10→22:23)
[2020-11-10] MEDS: THIAMINE HCL 100 MG TABLET (FP) PO SCH (22:13)
[2020-11-11] MEDS ORDERED: methaDONE HCL 10 MG TABLET ONE (04:37)
[2020-11-11] MEDS ORDERED: methaDONE HCL 40 MG DISPERSABLE TABLET ONE (04:38)
[2020-11-11] MEDS: methaDONE 40 MG, methaDONE 20 MG PO SCH (06:08)
[2020-11-11] MEDS: diazePAM 5 MG TABLET PO SCH ×2 (06:09→18:18)
[2020-11-11] MEDS: NICOTINE 10 MG CARTRIDGE (INHALER) IH PRN ×3 (06:25→18:20)
[2020-11-11] MEDS: diazePAM 5 MG TABLET PO PRN (10:40)
[2020-11-11] MEDS: PRENATAL VITAMINS W/ FOLIC ACID TABLET (FP) PO SCH (10:41)
[2020-11-11] MEDS: MAG HYDROX/AL HYDROX/SIMETH 30 ML UNIT-DOSE CUP PO PRN (19:45)
[2020-11-11] MEDS: THIAMINE HCL 100 MG TABLET (FP) PO SCH (22:50)
[2020-11-12] MEDS ORDERED: methaDONE HCL 10 MG TABLET ONE (04:55)
[2020-11-12] MEDS ORDERED: methaDONE HCL 40 MG DISPERSABLE TABLET ONE (04:55)
[2020-11-12] MEDS ORDERED: diazePAM 5 MG TABLET PO ONE (06:00)
[2020-11-12] MEDS: methaDONE 40 MG, methaDONE 20 MG PO SCH (06:06)
[2020-11-12] MEDS: NICOTINE 10 MG CARTRIDGE (INHALER) IH PRN ×2 (06:10→11:10)
[2020-11-12 09:53] VITALS: BP 134/79; PULSE 80; TEMP 97.3
[2020-11-12] MEDS: PRENATAL VITAMINS W/ FOLIC ACID TABLET (FP) PO SCH (11:01)
== END 2020-11-12 11:43 | disposition home or self-care (01) | DRG 773 ==
LOC: YASAS 13:13 → Y3N 19:03
PROVIDERS: ADMIT Allergy & Immunology; ATTEND Allergy & Immunology
PROC: HZ2ZZZZ Detoxification Services for Substance Abuse Treatment (ICD-10-PCS; principal; 2020-11-08)
DX: F10.230 Alcohol dependence with withdrawal, uncomplicated (principal); F13.230 Sedative, hypnotic or anxiolytic dependence with withdrawal, uncomplicated; F11.20 Opioid dependence, uncomplicated; F14.20 Cocaine dependence, uncomplicated; F17.210 Nicotine dependence, cigarettes, uncomplicated; F41.9 Anxiety disorder, unspecified; F32.9 Major depressive disorder, single episode, unspecified; B18.2 Chronic viral hepatitis C; B19.20 Unspecified viral hepatitis C without hepatic coma; R76.11 Nonspecific reaction to tuberculin skin test without active tuberculosis; Z94.0 Kidney transplant status; Z87.19 Personal history of other diseases of the digestive system
CPT/HCPCS: 36415; 80053; 85027; 86780; 93005; 93010; C9803; U0003; U0005

== ENCOUNTER 2020-11-13 07:39 | Inpatient (IN) | payer OTHER ==
[2020-11-13 07:47] VITALS: BMI 32.1
[2020-11-13] MEDS ORDERED: guaiFENesin 200 MG/10 ML 10 ML UNIT-DOSE CUPS PO PRN (13:04)
[2020-11-13] MEDS ORDERED: ACETAMINOPHEN 325 MG TABLET (FP) PO PRN (13:04)
[2020-11-13] MEDS ORDERED: LOPERAMIDE HCL 2 MG CAPSULE PO PRN (13:04)
[2020-11-13] MEDS ORDERED: P-EPHED 60MG/TRIPROLIDI 2.5MG TABLET PO PRN (13:04)
[2020-11-13] MEDS ORDERED: MAGNESIUM CITRATE 300 ML BOTTLE PO PRN (13:04)
[2020-11-13] MEDS ORDERED: methaDONE HCL 10 MG TABLET PO ONE (14:48)
[2020-11-13] MEDS: NICOTINE 7 MG/24 HOURS TOPICAL PATCH TD SCH (14:49)
[2020-11-13] MEDS: PRENATAL VITAMINS W/ FOLIC ACID TABLET (FP) PO SCH (14:51)
[2020-11-13] MEDS: hydrOXYzine PAMOATE 25 MG CAPSULE (FP) PO SCH ×3 (14:51→21:21)
[2020-11-13] MEDS: NICOTINE 10 MG CARTRIDGE (INHALER) IH PRN ×2 (14:53→21:22)
[2020-11-13] MEDS ORDERED: methaDONE 40 MG, methaDONE 20 MG PO ONE (15:00)
[2020-11-13] MEDS ORDERED: methaDONE HCL 10 MG TABLET ONE (15:44)
[2020-11-13] MEDS ORDERED: methaDONE HCL 40 MG DISPERSABLE TABLET ONE (15:45)
[2020-11-13] MEDS: MELATONIN 5 MG TABLETS PO SCH (21:20)
[2020-11-13] MEDS: MAG HYDROX/AL HYDROX/SIMETH 30 ML UNIT-DOSE CUP PO PRN (21:21)
[2020-11-13] MEDS: THIAMINE HCL 100 MG TABLET (FP) PO SCH (21:21)
[2020-11-14] MEDS: hydrOXYzine PAMOATE 25 MG CAPSULE (FP) PO SCH ×5 (06:43→21:02)
[2020-11-14] MEDS ORDERED: methaDONE HCL 40 MG DISPERSABLE TABLET ONE (06:44)
[2020-11-14] MEDS ORDERED: methaDONE HCL 10 MG TABLET ONE (06:44)
[2020-11-14] MEDS: methaDONE 40 MG, methaDONE 20 MG PO SCH (06:46)
[2020-11-14] MEDS: NICOTINE 10 MG CARTRIDGE (INHALER) IH PRN ×4 (06:48→21:06)
[2020-11-14] MEDS: NICOTINE 7 MG/24 HOURS TOPICAL PATCH TD SCH (09:38)
[2020-11-14] MEDS: PRENATAL VITAMINS W/ FOLIC ACID TABLET (FP) PO SCH (09:38)
[2020-11-14] MEDS ORDERED: methaDONE HCL 40 MG DISPERSABLE TABLET PO SCH (10:00)
[2020-11-14] MEDS: MAG HYDROX/AL HYDROX/SIMETH 30 ML UNIT-DOSE CUP PO PRN (12:36)
[2020-11-14] MEDS: MELATONIN 5 MG TABLETS PO SCH (21:02)
[2020-11-14] MEDS: THIAMINE HCL 100 MG TABLET (FP) PO SCH (21:02)
[2020-11-15] MEDS ORDERED: methaDONE HCL 40 MG DISPERSABLE TABLET ONE (03:46)
[2020-11-15] MEDS ORDERED: methaDONE HCL 10 MG TABLET ONE (03:46)
[2020-11-15] MEDS: hydrOXYzine PAMOATE 25 MG CAPSULE (FP) PO SCH ×5 (07:04→21:16)
[2020-11-15] MEDS: methaDONE 40 MG, methaDONE 20 MG PO SCH (07:04)
[2020-11-15] MEDS: NICOTINE 10 MG CARTRIDGE (INHALER) IH PRN ×3 (07:06→21:17)
[2020-11-15] MEDS: NICOTINE 7 MG/24 HOURS TOPICAL PATCH TD SCH (10:24)
[2020-11-15] MEDS: PRENATAL VITAMINS W/ FOLIC ACID TABLET (FP) PO SCH (10:24)
[2020-11-15 16:39] LABS: PH,URINE 7.5 (5.0-8.0); URINE APPEARANCE CLEAR; URINE BILIRUBIN 1+ (NEGATIVE); URINE COLOR DK YELLOW; URINE GLUCOSE (UA) NEGATIVE (NEGATIVE); URINE KETONE NEGATIVE (NEGATIVE); URINE LEUK ESTERASE NEGATIVE (NEGATIVE); URINE NITRITE NEGATIVE (NEGATIVE); URINE PROTEIN NEGATIVE (NEGATIVE)
[2020-11-15] MEDS: MELATONIN 5 MG TABLETS PO SCH (21:16)
[2020-11-15] MEDS: THIAMINE HCL 100 MG TABLET (FP) PO SCH (21:16)
[2020-11-16] MEDS ORDERED: methaDONE HCL 10 MG TABLET ONE (03:02)
[2020-11-16] MEDS ORDERED: methaDONE HCL 40 MG DISPERSABLE TABLET ONE (03:02)
[2020-11-16] MEDS: methaDONE 40 MG, methaDONE 20 MG PO SCH (06:09)
[2020-11-16] MEDS: hydrOXYzine PAMOATE 25 MG CAPSULE (FP) PO SCH ×5 (06:09→21:13)
[2020-11-16] MEDS: NICOTINE 10 MG CARTRIDGE (INHALER) IH PRN ×3 (06:12→21:13)
[2020-11-16] MEDS: PRENATAL VITAMINS W/ FOLIC ACID TABLET (FP) PO SCH (09:54)
[2020-11-16] MEDS: NICOTINE 7 MG/24 HOURS TOPICAL PATCH TD SCH (09:54)
[2020-11-16] MEDS: MELATONIN 5 MG TABLETS PO SCH (21:13)
[2020-11-16] MEDS: THIAMINE HCL 100 MG TABLET (FP) PO SCH (21:13)
[2020-11-16] MEDS: MAG HYDROX/AL HYDROX/SIMETH 30 ML UNIT-DOSE CUP PO PRN (21:14)
[2020-11-17] MEDS ORDERED: methaDONE HCL 10 MG TABLET ONE (04:20)
[2020-11-17] MEDS ORDERED: methaDONE HCL 40 MG DISPERSABLE TABLET ONE (04:20)
[2020-11-17] MEDS: hydrOXYzine PAMOATE 25 MG CAPSULE (FP) PO SCH ×5 (06:14→21:14)
[2020-11-17] MEDS: methaDONE 40 MG, methaDONE 20 MG PO SCH (06:14)
[2020-11-17] MEDS: NICOTINE 10 MG CARTRIDGE (INHALER) IH PRN (09:35)
[2020-11-17] MEDS: NICOTINE 7 MG/24 HOURS TOPICAL PATCH TD SCH (09:35)
[2020-11-17] MEDS: PRENATAL VITAMINS W/ FOLIC ACID TABLET (FP) PO SCH (09:35)
[2020-11-17] MEDS: IBUPROFEN 400 MG TABLET (FP) PO PRN (09:37)
[2020-11-17] MEDS: MELATONIN 5 MG TABLETS PO SCH (21:14)
[2020-11-17] MEDS: THIAMINE HCL 100 MG TABLET (FP) PO SCH (21:14)
[2020-11-18] MEDS ORDERED: methaDONE HCL 40 MG DISPERSABLE TABLET ONE (03:10)
[2020-11-18] MEDS ORDERED: methaDONE HCL 10 MG TABLET ONE (03:10)
[2020-11-18] MEDS: hydrOXYzine PAMOATE 25 MG CAPSULE (FP) PO SCH ×5 (06:43→21:13)
[2020-11-18] MEDS: methaDONE 40 MG, methaDONE 20 MG PO SCH (06:43)
[2020-11-18] MEDS: PRENATAL VITAMINS W/ FOLIC ACID TABLET (FP) PO SCH (11:05)
[2020-11-18] MEDS: NICOTINE 7 MG/24 HOURS TOPICAL PATCH TD SCH (11:05)
[2020-11-18] MEDS: NICOTINE 10 MG CARTRIDGE (INHALER) IH PRN ×2 (11:07→17:32)
[2020-11-18] MEDS: IBUPROFEN 400 MG TABLET (FP) PO PRN (11:07)
[2020-11-18] MEDS: MELATONIN 5 MG TABLETS PO SCH (21:13)
[2020-11-18] MEDS: THIAMINE HCL 100 MG TABLET (FP) PO SCH (21:13)
[2020-11-18] MEDS: MAG HYDROX/AL HYDROX/SIMETH 30 ML UNIT-DOSE CUP PO PRN (21:14)
[2020-11-19] MEDS ORDERED: methaDONE HCL 10 MG TABLET ONE (05:45)
[2020-11-19] MEDS ORDERED: methaDONE HCL 40 MG DISPERSABLE TABLET ONE (05:46)
[2020-11-19] MEDS: hydrOXYzine PAMOATE 25 MG CAPSULE (FP) PO SCH ×5 (06:33→21:19)
[2020-11-19] MEDS: methaDONE 40 MG, methaDONE 20 MG PO SCH (06:33)
[2020-11-19] MEDS: NICOTINE 7 MG/24 HOURS TOPICAL PATCH TD SCH (09:53)
[2020-11-19] MEDS: PRENATAL VITAMINS W/ FOLIC ACID TABLET (FP) PO SCH (09:53)
[2020-11-19] MEDS: MAG HYDROX/AL HYDROX/SIMETH 30 ML UNIT-DOSE CUP PO PRN (09:55)
[2020-11-19] MEDS: NICOTINE 10 MG CARTRIDGE (INHALER) IH PRN (17:05)
[2020-11-19] MEDS ORDERED: PT OWN MED DRAWER 7, Y5N ONE (21:07)
[2020-11-19] MEDS: MELATONIN 5 MG TABLETS PO SCH (21:19)
[2020-11-19] MEDS: THIAMINE HCL 100 MG TABLET (FP) PO SCH (21:19)
[2020-11-19] MEDS: ONDANSETRON *ODT* 4 MG TABLET SL PRN (21:21)
[2020-11-20] MEDS ORDERED: methaDONE HCL 40 MG DISPERSABLE TABLET ONE (02:53)
[2020-11-20] MEDS ORDERED: methaDONE HCL 10 MG TABLET ONE (02:53)
[2020-11-20] MEDS: methaDONE 40 MG, methaDONE 20 MG PO SCH (06:53)
[2020-11-20] MEDS: hydrOXYzine PAMOATE 25 MG CAPSULE (FP) PO SCH ×2 (06:55→10:04)
[2020-11-20] MEDS: NICOTINE 7 MG/24 HOURS TOPICAL PATCH TD SCH (10:03)
[2020-11-20] MEDS: PRENATAL VITAMINS W/ FOLIC ACID TABLET (FP) PO SCH (10:03)
[2020-11-20] MEDS: ONDANSETRON *ODT* 4 MG TABLET SL PRN (20:05)
[2020-11-20] MEDS: MELATONIN 5 MG TABLETS PO SCH (21:53)
[2020-11-20] MEDS: NICOTINE 10 MG CARTRIDGE (INHALER) IH PRN (21:53)
[2020-11-20] MEDS: THIAMINE HCL 100 MG TABLET (FP) PO SCH (21:53)
[2020-11-20] MEDS: hydrOXYzine PAMOATE 25 MG CAPSULE (FP) PO PRN (21:54)
[2020-11-21] MEDS: hydrOXYzine PAMOATE 25 MG CAPSULE (FP) PO PRN ×3 (06:47→21:41)
[2020-11-21] MEDS: NICOTINE 10 MG CARTRIDGE (INHALER) IH PRN ×3 (07:21→23:00)
[2020-11-21] MEDS ORDERED: methaDONE HCL 10 MG TABLET PO ONE (09:16)
[2020-11-21] MEDS ORDERED: methaDONE 40 MG, methaDONE 20 MG PO ONE (09:30)
[2020-11-21] MEDS ORDERED: methaDONE HCL 10 MG TABLET ONE (09:39)
[2020-11-21] MEDS ORDERED: methaDONE HCL 40 MG DISPERSABLE TABLET ONE (09:40)
[2020-11-21] MEDS: PRENATAL VITAMINS W/ FOLIC ACID TABLET (FP) PO SCH (09:41)
[2020-11-21] MEDS: NICOTINE 7 MG/24 HOURS TOPICAL PATCH TD SCH (09:42)
[2020-11-21] MEDS: THIAMINE HCL 100 MG TABLET (FP) PO SCH (21:40)
[2020-11-21] MEDS: MELATONIN 5 MG TABLETS PO SCH (21:40)
[2020-11-22] MEDS ORDERED: methaDONE HCL 10 MG TABLET PO SCH (06:00)
[2020-11-22] MEDS ORDERED: methaDONE HCL 40 MG DISPERSABLE TABLET ONE (06:27)
[2020-11-22] MEDS ORDERED: methaDONE HCL 10 MG TABLET ONE (06:27)
[2020-11-22] MEDS: methaDONE 40 MG, methaDONE 20 MG PO SCH (06:27)
[2020-11-22] MEDS: hydrOXYzine PAMOATE 25 MG CAPSULE (FP) PO PRN ×3 (06:28→21:09)
[2020-11-22] MEDS: NICOTINE 7 MG/24 HOURS TOPICAL PATCH TD SCH (09:29)
[2020-11-22] MEDS: PRENATAL VITAMINS W/ FOLIC ACID TABLET (FP) PO SCH (09:29)
[2020-11-22] MEDS: NICOTINE 10 MG CARTRIDGE (INHALER) IH PRN ×2 (09:30→21:09)
[2020-11-22] MEDS: MAGNESIUM HYDROX 2400MG/30ML ORAL SUSPENSION 30 ML CUP PO PRN (20:46)
[2020-11-22] MEDS: COLLOIDAL OATMEAL 1 BAR EACH TP PRN (20:49)
[2020-11-22] MEDS: THIAMINE HCL 100 MG TABLET (FP) PO SCH (21:07)
[2020-11-22] MEDS: MELATONIN 5 MG TABLETS PO SCH (21:07)
[2020-11-23] MEDS ORDERED: methaDONE HCL 40 MG DISPERSABLE TABLET ONE (02:49)
[2020-11-23] MEDS ORDERED: methaDONE HCL 10 MG TABLET ONE (02:49)
[2020-11-23] MEDS: methaDONE 40 MG, methaDONE 20 MG PO SCH (06:13)
[2020-11-23] MEDS: hydrOXYzine PAMOATE 25 MG CAPSULE (FP) PO PRN ×2 (06:17→10:34)
[2020-11-23] MEDS: PRENATAL VITAMINS W/ FOLIC ACID TABLET (FP) PO SCH (09:38)
[2020-11-23] MEDS: NICOTINE 10 MG CARTRIDGE (INHALER) IH PRN ×2 (09:39→19:32)
[2020-11-23] MEDS: NICOTINE 7 MG/24 HOURS TOPICAL PATCH TD SCH (09:39)
[2020-11-23] MEDS ORDERED: PT OWN MED DRAWER 7, Y5N ONE ×2 (15:49→22:05)
[2020-11-23] MEDS: SUVOREXANT 10 MG TABLET PO PRN (21:19)
[2020-11-23] MEDS: MAG HYDROX/AL HYDROX/SIMETH 30 ML UNIT-DOSE CUP PO PRN (21:20)
[2020-11-23] MEDS: THIAMINE HCL 100 MG TABLET (FP) PO SCH (21:20)
[2020-11-24] MEDS ORDERED: methaDONE HCL 10 MG TABLET ONE (04:58)
[2020-11-24] MEDS ORDERED: methaDONE HCL 40 MG DISPERSABLE TABLET ONE (04:58)
[2020-11-24] MEDS: methaDONE 40 MG, methaDONE 20 MG PO SCH (06:01)
[2020-11-24] MEDS: hydrOXYzine PAMOATE 25 MG CAPSULE (FP) PO PRN ×3 (06:04→16:17)
[2020-11-24] MEDS: NICOTINE 10 MG CARTRIDGE (INHALER) IH PRN ×2 (06:04→18:59)
[2020-11-24] MEDS: NICOTINE 7 MG/24 HOURS TOPICAL PATCH TD SCH (09:48)
[2020-11-24] MEDS: PRENATAL VITAMINS W/ FOLIC ACID TABLET (FP) PO SCH (09:48)
[2020-11-24] MEDS: THIAMINE HCL 100 MG TABLET (FP) PO SCH (21:59)
[2020-11-24] MEDS: SUVOREXANT 10 MG TABLET PO PRN (22:02)
[2020-11-24] MEDS: MAGNESIUM HYDROX 2400MG/30ML ORAL SUSPENSION 30 ML CUP PO PRN (22:03)
[2020-11-24] MEDS: COLLOIDAL OATMEAL 1 BAR EACH TP PRN (22:03)
[2020-11-25] MEDS ORDERED: methaDONE HCL 10 MG TABLET ONE (03:21)
[2020-11-25] MEDS ORDERED: methaDONE HCL 40 MG DISPERSABLE TABLET ONE (03:21)
[2020-11-25] MEDS: methaDONE 40 MG, methaDONE 20 MG PO SCH (06:30)
[2020-11-25] MEDS: NICOTINE 10 MG CARTRIDGE (INHALER) IH PRN ×4 (06:31→21:04)
[2020-11-25] MEDS: PRENATAL VITAMINS W/ FOLIC ACID TABLET (FP) PO SCH (10:56)
[2020-11-25] MEDS: NICOTINE 7 MG/24 HOURS TOPICAL PATCH TD SCH (10:57)
[2020-11-25] MEDS: hydrOXYzine PAMOATE 25 MG CAPSULE (FP) PO PRN ×2 (10:57→17:18)
[2020-11-25] MEDS: THIAMINE HCL 100 MG TABLET (FP) PO SCH (21:00)
[2020-11-25] MEDS: SUVOREXANT 10 MG TABLET PO PRN (21:02)
[2020-11-25] MEDS: MAGNESIUM HYDROX 2400MG/30ML ORAL SUSPENSION 30 ML CUP PO PRN (21:02)
[2020-11-26] MEDS ORDERED: methaDONE HCL 40 MG DISPERSABLE TABLET ONE (03:26)
[2020-11-26] MEDS ORDERED: methaDONE HCL 10 MG TABLET ONE (03:26)
[2020-11-26] MEDS: methaDONE 40 MG, methaDONE 20 MG PO SCH (06:11)
[2020-11-26] MEDS: hydrOXYzine PAMOATE 25 MG CAPSULE (FP) PO PRN ×3 (06:12→14:18)
[2020-11-26] MEDS: NICOTINE 10 MG CARTRIDGE (INHALER) IH PRN ×2 (06:13→12:47)
[2020-11-26] MEDS: PRENATAL VITAMINS W/ FOLIC ACID TABLET (FP) PO SCH (09:21)
[2020-11-26] MEDS: NICOTINE 7 MG/24 HOURS TOPICAL PATCH TD SCH (09:21)
[2020-11-26] MEDS ORDERED: PT OWN MED DRAWER 7, Y5N ONE (19:05)
[2020-11-26] MEDS: THIAMINE HCL 100 MG TABLET (FP) PO SCH (21:40)
[2020-11-26] MEDS ORDERED: SUVOREXANT 10 MG TABLET PO PRN (22:00)
[2020-11-27] MEDS ORDERED: methaDONE HCL 40 MG DISPERSABLE TABLET ONE (03:59)
[2020-11-27] MEDS ORDERED: methaDONE HCL 10 MG TABLET ONE (03:59)
[2020-11-27] MEDS: methaDONE 40 MG, methaDONE 20 MG PO SCH (06:35)
[2020-11-27] MEDS: NICOTINE 10 MG CARTRIDGE (INHALER) IH PRN (06:38)
[2020-11-27] MEDS: hydrOXYzine PAMOATE 25 MG CAPSULE (FP) PO PRN (06:38)
[2020-11-27 06:55] VITALS: BP 133/86; PULSE 76; TEMP 97.4
[2020-11-27] MEDS ORDERED: PT OWN MED DRAWER 7, Y5N ONE (08:56)
[2020-11-27] MEDS: NICOTINE 7 MG/24 HOURS TOPICAL PATCH TD SCH (09:21)
[2020-11-27] MEDS: PRENATAL VITAMINS W/ FOLIC ACID TABLET (FP) PO SCH (09:21)
[2020-11-27] MEDS: MAG HYDROX/AL HYDROX/SIMETH 30 ML UNIT-DOSE CUP PO PRN (09:56)
== END 2020-11-27 10:07 | disposition home or self-care (01) | DRG 772 ==
LOC: YASAS 07:39 → Y5N 12:23
PROVIDERS: ADMIT Allergy & Immunology; ATTEND Allergy & Immunology
PROC: HZ42ZZZ Group Counseling for Substance Abuse Treatment, Cognitive-Behavioral (ICD-10-PCS; principal; 2020-11-13)
DX: F11.20 Opioid dependence, uncomplicated (principal); F10.20 Alcohol dependence, uncomplicated; F14.20 Cocaine dependence, uncomplicated; F13.20 Sedative, hypnotic or anxiolytic dependence, uncomplicated; F17.210 Nicotine dependence, cigarettes, uncomplicated; F19.282 Other psychoactive substance dependence with psychoactive substance-induced sleep disorder; I12.9 Hypertensive chronic kidney disease with stage 1 through stage 4 chronic kidney disease, or unspecified chronic kidney disease; N18.9 Chronic kidney disease, unspecified; Z94.0 Kidney transplant status; M54.5 Low back pain; G89.29 Other chronic pain; Z86.19 Personal history of other infectious and parasitic diseases; Z56.0 Unemployment, unspecified
CPT/HCPCS: 81003; C9803; Q0162; U0003; U0005

== ENCOUNTER 2021-09-05 09:42 | Inpatient (IN) | payer OTHER ==
[2021-09-05 10:21] VITALS: BMI 32.3
[2021-09-05] MEDS ORDERED: IBUPROFEN 400 MG TABLET (FP) PO PRN (10:29)
[2021-09-05] MEDS ORDERED: BISMUTH SUBSALICYLATE 262 MG/15 ML BTL PO PRN (10:29)
[2021-09-05] MEDS ORDERED: MAGNESIUM CITRATE 300 ML BOTTLE PO PRN (10:29)
[2021-09-05] MEDS ORDERED: chlordiazePOXIDE HCL 25 MG CAPSULE PO PRN (10:29)
[2021-09-05] MEDS ORDERED: ONDANSETRON *ODT* 4 MG TABLET SL PRN (10:29)
[2021-09-05] MEDS ORDERED: BENZOCAINE/MENTHOL (CHLORASEPTIC ) LOZENGE MM PRN (10:29)
[2021-09-05] MEDS ORDERED: LOPERAMIDE HCL 2 MG CAPSULE PO PRN (10:29)
[2021-09-05] MEDS ORDERED: ACETAMINOPHEN 325 MG TABLET (FP) PO PRN ×2 (10:29)
[2021-09-05] MEDS ORDERED: NICOTINE 14 MG/24 HOURS TOPICAL PATCH TD ONE (10:59)
[2021-09-05] MEDS ORDERED: chlordiazePOXIDE HCL 25 MG CAPSULE ONE (10:59)
[2021-09-05] MEDS: chlordiazePOXIDE HCL 25 MG CAPSULE PO SCH ×3 (11:07→22:42)
[2021-09-05] MEDS: NICOTINE 14 MG/24 HOURS TOPICAL PATCH TD SCH (11:07)
[2021-09-05] MEDS: hydrOXYzine PAMOATE 25 MG CAPSULE (FP) PO SCH ×3 (15:10→22:41)
[2021-09-05] MEDS: THIAMINE HCL 100 MG TABLET (FP) PO SCH (22:41)
[2021-09-05] MEDS: MELATONIN 5 MG TABLETS PO SCH (22:41)
[2021-09-06] MEDS: chlordiazePOXIDE HCL 25 MG CAPSULE PO SCH ×4 (05:50→22:35)
[2021-09-06] MEDS: hydrOXYzine PAMOATE 25 MG CAPSULE (FP) PO SCH ×5 (05:50→22:35)
[2021-09-06] MEDS ORDERED: methaDONE HCL 40 MG DISPERSABLE TABLET PO SCH (06:45)
[2021-09-06] MEDS ORDERED: methaDONE HCL 10 MG TABLET ONE (07:06)
[2021-09-06] MEDS ORDERED: methaDONE HCL 40 MG DISPERSABLE TABLET ONE (07:06)
[2021-09-06] MEDS: methaDONE 40 MG, methaDONE 20 MG PO SCH (07:07)
[2021-09-06 10:12] LABS: HEMATOCRIT 41.4 % (35.4-49); MCHC 33.7 g/dl (32.0-35.9); MEAN CELL VOLUME 86.1 fl (80-96); MEAN PLT VOLUME 9.3 fl (7.5-11.1); PLATELET COUNT 125 10^3/uL (134-434); RBC 4.81 M/mm3 (4.00-5.60); RDW 13.4 % (11.9-15.9); WHITE BLOOD COUNT 6.5 K/mm3 (4.0-10.0)
[2021-09-06 10:22] LABS: CALCIUM 9.4 mg/dL (8.5-10.1)
[2021-09-06 10:23] LABS: ALBUMIN 3.6 g/dl (3.4-5.0); BLOOD UREA NITROGEN 14.8 mg/dL (7-18)
[2021-09-06 10:25] LABS: CREATININE 1.3 mg/dL (0.55-1.3)
[2021-09-06 10:27] LABS: BILIRUBIN,TOTAL 0.6 mg/dL (0.2-1); TOT PROT 8.8 g/dl (6.4-8.2)
[2021-09-06] MEDS: NICOTINE 14 MG/24 HOURS TOPICAL PATCH TD SCH (10:45)
[2021-09-06] MEDS: PRENATAL VITAMINS W/ FOLIC ACID TABLET (FP) PO SCH (10:45)
[2021-09-06] MEDS: METHOCARBAMOL 500 MG TABLET PO PRN (18:03)
[2021-09-06] MEDS: NICOTINE 10 MG CARTRIDGE (INHALER) IH PRN (18:04)
[2021-09-06] MEDS: DICYCLOMINE HCL 10 MG CAPSULE PO PRN (22:33)
[2021-09-06] MEDS: IBUPROFEN 600 MG TABLET (FP) PO PRN (22:35)
[2021-09-06] MEDS: MELATONIN 5 MG TABLETS PO SCH (22:36)
[2021-09-06] MEDS: THIAMINE HCL 100 MG TABLET (FP) PO SCH (22:36)
[2021-09-07] MEDS ORDERED: methaDONE HCL 40 MG DISPERSABLE TABLET ONE (04:15)
[2021-09-07] MEDS ORDERED: methaDONE HCL 10 MG TABLET ONE (04:15)
[2021-09-07] MEDS: chlordiazePOXIDE HCL 25 MG CAPSULE PO SCH ×4 (05:54→22:42)
[2021-09-07] MEDS: methaDONE 40 MG, methaDONE 20 MG PO SCH (05:54)
[2021-09-07] MEDS: hydrOXYzine PAMOATE 25 MG CAPSULE (FP) PO SCH ×5 (05:54→22:44)
[2021-09-07] MEDS: PRENATAL VITAMINS W/ FOLIC ACID TABLET (FP) PO SCH (10:32)
[2021-09-07] MEDS: METHOCARBAMOL 500 MG TABLET PO PRN (10:32)
[2021-09-07] MEDS: NICOTINE 14 MG/24 HOURS TOPICAL PATCH TD SCH (10:33)
[2021-09-07] MEDS: MAG HYDROX/AL HYDROX/SIMETH 30 ML UNIT-DOSE CUP PO PRN (18:09)
[2021-09-07] MEDS: IBUPROFEN 600 MG TABLET (FP) PO PRN (22:43)
[2021-09-07] MEDS: MELATONIN 5 MG TABLETS PO SCH (22:43)
[2021-09-07] MEDS: THIAMINE HCL 100 MG TABLET (FP) PO SCH (22:44)
[2021-09-08] MEDS ORDERED: chlordiazePOXIDE HCL 10 MG CAPSULE PO PRN
[2021-09-08] MEDS ORDERED: methaDONE HCL 40 MG DISPERSABLE TABLET ONE (04:18)
[2021-09-08] MEDS ORDERED: methaDONE HCL 10 MG TABLET ONE (04:18)
[2021-09-08] MEDS: chlordiazePOXIDE HCL 10 MG CAPSULE PO SCH ×4 (06:03→22:12)
[2021-09-08] MEDS: hydrOXYzine PAMOATE 25 MG CAPSULE (FP) PO SCH ×5 (06:03→22:12)
[2021-09-08] MEDS: methaDONE 40 MG, methaDONE 20 MG PO SCH (06:03)
[2021-09-08] MEDS: NICOTINE 14 MG/24 HOURS TOPICAL PATCH TD SCH (10:27)
[2021-09-08] MEDS: METHOCARBAMOL 500 MG TABLET PO PRN ×2 (10:27→18:37)
[2021-09-08] MEDS: PRENATAL VITAMINS W/ FOLIC ACID TABLET (FP) PO SCH (10:29)
[2021-09-08] MEDS: NICOTINE 10 MG CARTRIDGE (INHALER) IH PRN (15:54)
[2021-09-08] MEDS: MAGNESIUM HYDROX 2400MG/30ML ORAL SUSPENSION 30 ML CUP PO PRN (16:47)
[2021-09-08] MEDS: DICYCLOMINE HCL 10 MG CAPSULE PO PRN (18:36)
[2021-09-08] MEDS: MELATONIN 5 MG TABLETS PO SCH (22:13)
[2021-09-08] MEDS: THIAMINE HCL 100 MG TABLET (FP) PO SCH (22:13)
[2021-09-09] MEDS: hydrOXYzine PAMOATE 25 MG CAPSULE (FP) PO SCH ×2 (06:13→10:25)
[2021-09-09] MEDS: chlordiazePOXIDE HCL 10 MG CAPSULE PO SCH ×2 (06:13→21:19)
[2021-09-09] MEDS ORDERED: methaDONE HCL 10 MG TABLET ONE (06:13)
[2021-09-09] MEDS: methaDONE 40 MG, methaDONE 20 MG PO SCH (06:14)
[2021-09-09] MEDS ORDERED: methaDONE HCL 40 MG DISPERSABLE TABLET ONE (06:14)
[2021-09-09] MEDS: PRENATAL VITAMINS W/ FOLIC ACID TABLET (FP) PO SCH (10:25)
[2021-09-09] MEDS: NICOTINE 14 MG/24 HOURS TOPICAL PATCH TD SCH (10:25)
[2021-09-09] MEDS ORDERED: ACETAMINOPHEN 1000 MG/100 ML BAG IVPB ONE (13:21)
[2021-09-09] MEDS ORDERED: SODIUM CHLORIDE 1,000 ML IV STA (13:22)
[2021-09-09] MEDS ORDERED: DOCUSATE SODIUM 100 MG CAPSULE (FP) PO SCH (22:00)
[2021-09-09] MEDS: MELATONIN 5 MG TABLETS PO SCH (22:33)
[2021-09-09] MEDS: THIAMINE HCL 100 MG TABLET (FP) PO SCH (22:33)
[2021-09-09] MEDS: LACTULOSE 20 GM/30 ML UDC (FOR ORAL USE ONLY) PO SCH (22:34)
[2021-09-10] MEDS ORDERED: methaDONE HCL 10 MG TABLET ONE (04:19)
[2021-09-10] MEDS ORDERED: methaDONE HCL 40 MG DISPERSABLE TABLET ONE (04:19)
[2021-09-10] MEDS: MAG HYDROX/AL HYDROX/SIMETH 30 ML UNIT-DOSE CUP PO PRN (04:59)
[2021-09-10] MEDS ORDERED: chlordiazePOXIDE HCL 10 MG CAPSULE PO ONE (05:00)
[2021-09-10] MEDS: methaDONE 40 MG, methaDONE 20 MG PO SCH (05:26)
[2021-09-10] MEDS: PRENATAL VITAMINS W/ FOLIC ACID TABLET (FP) PO SCH (10:26)
[2021-09-10] MEDS: LACTULOSE 20 GM/30 ML UDC (FOR ORAL USE ONLY) PO SCH (10:27)
[2021-09-10] MEDS: MAGNESIUM HYDROX 2400MG/30ML ORAL SUSPENSION 30 ML CUP PO PRN (10:27)
[2021-09-10] MEDS: NICOTINE 14 MG/24 HOURS TOPICAL PATCH TD SCH (10:28)
[2021-09-10] MEDS ORDERED: LACTULOSE 20 GM/30 ML UDC (FOR ORAL USE ONLY) PO SCH (11:00)
[2021-09-10 13:06] VITALS: BP 103/62; PULSE 82; TEMP 98.1
== END 2021-09-10 12:45 | disposition other institution (70) | DRG 773 ==
LOC: YASAS 09:42 → Y6N 10:42
PROVIDERS: ADMIT Allergy & Immunology; ATTEND Surgery
PROC: HZ2ZZZZ Detoxification Services for Substance Abuse Treatment (ICD-10-PCS; principal; 2021-09-05)
DX: F10.230 Alcohol dependence with withdrawal, uncomplicated (principal); F11.20 Opioid dependence, uncomplicated; F14.20 Cocaine dependence, uncomplicated; F13.20 Sedative, hypnotic or anxiolytic dependence, uncomplicated; F17.210 Nicotine dependence, cigarettes, uncomplicated; F41.9 Anxiety disorder, unspecified; F32.A Depression, unspecified; B18.2 Chronic viral hepatitis C; K59.01 Slow transit constipation; R41.82 Altered mental status, unspecified; R79.89 Other specified abnormal findings of blood chemistry; F19.282 Other psychoactive substance dependence with psychoactive substance-induced sleep disorder; Z73.3 Stress, not elsewhere classified; Z59.1 Inadequate housing
CPT/HCPCS: 36415; 80053; 82140; 82962; 85027; 86780; 87811; C9803-CS; U0003; U0005

== ENCOUNTER 2021-09-10 13:01 | Inpatient (IN) | payer OTHER ==
[2021-09-10] MEDS ORDERED: MAGNESIUM CITRATE 300 ML BOTTLE PO PRN (13:45)
[2021-09-10] MEDS ORDERED: NICOTINE POLACRILEX 2 MG GUM BUC PRN (13:45)
[2021-09-10] MEDS ORDERED: LOPERAMIDE HCL 2 MG CAPSULE PO PRN (13:45)
[2021-09-10] MEDS ORDERED: ACETAMINOPHEN 325 MG TABLET (FP) PO PRN (13:45)
[2021-09-10] MEDS ORDERED: P-EPHED 60MG/TRIPROLIDI 2.5MG TABLET PO PRN (13:45)
[2021-09-10] MEDS ORDERED: guaiFENesin 200 MG/10 ML 10 ML UNIT-DOSE CUPS PO PRN (13:45)
[2021-09-10] MEDS: MAG HYDROX/AL HYDROX/SIMETH 30 ML UNIT-DOSE CUP PO PRN (14:10)
[2021-09-10] MEDS: LACTULOSE 20 GM/30 ML UDC (FOR ORAL USE ONLY) PO SCH ×3 (14:10→21:19)
[2021-09-10] MEDS: THIAMINE HCL 100 MG TABLET (FP) PO SCH (21:18)
[2021-09-10] MEDS: DOCUSATE SODIUM 100 MG CAPSULE (FP) PO SCH (21:19)
[2021-09-10] MEDS ORDERED: MELATONIN 5 MG TABLETS PO SCH (22:00)
[2021-09-11] MEDS ORDERED: methaDONE HCL 40 MG DISPERSABLE TABLET ONE (05:11)
[2021-09-11] MEDS ORDERED: methaDONE HCL 10 MG TABLET ONE (05:11)
[2021-09-11] MEDS ORDERED: methaDONE HCL 40 MG DISPERSABLE TABLET PO SCH (06:00)
[2021-09-11] MEDS: methaDONE 40 MG, methaDONE 20 MG PO SCH (06:07)
[2021-09-11] MEDS: LACTULOSE 20 GM/30 ML UDC (FOR ORAL USE ONLY) PO SCH ×4 (10:09→21:02)
[2021-09-11] MEDS: MAGNESIUM HYDROX 2400MG/30ML ORAL SUSPENSION 30 ML CUP PO PRN (10:09)
[2021-09-11] MEDS: PRENATAL VITAMINS W/ FOLIC ACID TABLET (FP) PO SCH (10:09)
[2021-09-11] MEDS: THIAMINE HCL 100 MG TABLET (FP) PO SCH (21:02)
[2021-09-11] MEDS: DOCUSATE SODIUM 100 MG CAPSULE (FP) PO SCH (21:03)
[2021-09-11] MEDS: SUVOREXANT 10 MG TABLET PO PRN (21:04)
[2021-09-12] MEDS ORDERED: methaDONE HCL 40 MG DISPERSABLE TABLET ONE (03:56)
[2021-09-12] MEDS ORDERED: methaDONE HCL 10 MG TABLET ONE (03:56)
[2021-09-12] MEDS: methaDONE 40 MG, methaDONE 20 MG PO SCH (06:28)
[2021-09-12] MEDS: NICOTINE 10 MG CARTRIDGE (INHALER) IH PRN (06:29)
[2021-09-12] MEDS: LACTULOSE 20 GM/30 ML UDC (FOR ORAL USE ONLY) PO SCH ×4 (10:52→21:12)
[2021-09-12] MEDS: PRENATAL VITAMINS W/ FOLIC ACID TABLET (FP) PO SCH (10:52)
[2021-09-12] MEDS: IBUPROFEN 400 MG TABLET (FP) PO PRN ×2 (12:55→21:13)
[2021-09-12] MEDS: DOCUSATE SODIUM 100 MG CAPSULE (FP) PO SCH (21:12)
[2021-09-12] MEDS: THIAMINE HCL 100 MG TABLET (FP) PO SCH (21:12)
[2021-09-12] MEDS: SUVOREXANT 10 MG TABLET PO PRN (21:13)
[2021-09-13] MEDS ORDERED: methaDONE HCL 10 MG TABLET ONE (04:49)
[2021-09-13] MEDS ORDERED: methaDONE HCL 40 MG DISPERSABLE TABLET ONE (04:50)
[2021-09-13] MEDS: methaDONE 40 MG, methaDONE 20 MG PO SCH (06:19)
[2021-09-13] MEDS: IBUPROFEN 400 MG TABLET (FP) PO PRN ×2 (06:22→13:53)
[2021-09-13] MEDS: LACTULOSE 20 GM/30 ML UDC (FOR ORAL USE ONLY) PO SCH ×4 (10:10→21:17)
[2021-09-13] MEDS: PRENATAL VITAMINS W/ FOLIC ACID TABLET (FP) PO SCH (10:10)
[2021-09-13] MEDS: hydrOXYzine PAMOATE 25 MG CAPSULE (FP) PO PRN ×2 (11:25→21:16)
[2021-09-13] MEDS: NICOTINE 10 MG CARTRIDGE (INHALER) IH PRN (18:05)
[2021-09-13] MEDS: DOCUSATE SODIUM 100 MG CAPSULE (FP) PO SCH (21:15)
[2021-09-13] MEDS: THIAMINE HCL 100 MG TABLET (FP) PO SCH (21:15)
[2021-09-13] MEDS: PRAZOSIN HCL 1 MG CAPSULE PO SCH (21:15)
[2021-09-13] MEDS: SUVOREXANT 10 MG TABLET PO PRN (21:16)
[2021-09-13] MEDS ORDERED: PRAZOSIN HCL 1 MG CAPSULE PO SCH (22:00)
[2021-09-14] MEDS ORDERED: methaDONE HCL 10 MG TABLET ONE (05:34)
[2021-09-14] MEDS ORDERED: methaDONE HCL 40 MG DISPERSABLE TABLET ONE (05:35)
[2021-09-14] MEDS: methaDONE 40 MG, methaDONE 20 MG PO SCH (06:09)
[2021-09-14] MEDS: NICOTINE 10 MG CARTRIDGE (INHALER) IH PRN (08:54)
[2021-09-14] MEDS: PRENATAL VITAMINS W/ FOLIC ACID TABLET (FP) PO SCH (10:59)
[2021-09-14] MEDS: IBUPROFEN 400 MG TABLET (FP) PO PRN ×2 (11:00→21:21)
[2021-09-14] MEDS: LACTULOSE 20 GM/30 ML UDC (FOR ORAL USE ONLY) PO SCH ×4 (11:02→21:21)
[2021-09-14] MEDS: hydrOXYzine PAMOATE 25 MG CAPSULE (FP) PO PRN ×2 (11:03→21:21)
[2021-09-14] MEDS: LIDOCAINE 5% TOPICAL PATCH TP SCH (15:52)
[2021-09-14] MEDS: MAG HYDROX/AL HYDROX/SIMETH 30 ML UNIT-DOSE CUP PO PRN (16:51)
[2021-09-14] MEDS: THIAMINE HCL 100 MG TABLET (FP) PO SCH (21:19)
[2021-09-14] MEDS: PRAZOSIN HCL 1 MG CAPSULE PO SCH (21:20)
[2021-09-14] MEDS: DOCUSATE SODIUM 100 MG CAPSULE (FP) PO SCH (21:20)
[2021-09-14] MEDS: SUVOREXANT 10 MG TABLET PO PRN (21:21)
[2021-09-14] MEDS: LIDOCAINE PATCH REMOVAL MC SCH (21:22)
[2021-09-15] MEDS ORDERED: methaDONE HCL 10 MG TABLET ONE (03:13)
[2021-09-15] MEDS ORDERED: methaDONE HCL 40 MG DISPERSABLE TABLET ONE (03:14)
[2021-09-15] MEDS: methaDONE 40 MG, methaDONE 20 MG PO SCH (06:20)
[2021-09-15] MEDS: hydrOXYzine PAMOATE 25 MG CAPSULE (FP) PO PRN ×2 (06:23→10:12)
[2021-09-15] MEDS: LACTULOSE 20 GM/30 ML UDC (FOR ORAL USE ONLY) PO SCH ×4 (10:10→21:32)
[2021-09-15] MEDS: NICOTINE 10 MG CARTRIDGE (INHALER) IH PRN (10:11)
[2021-09-15] MEDS: PRENATAL VITAMINS W/ FOLIC ACID TABLET (FP) PO SCH (10:11)
[2021-09-15] MEDS: LIDOCAINE 5% TOPICAL PATCH TP SCH (10:11)
[2021-09-15] MEDS: DOCUSATE SODIUM 100 MG CAPSULE (FP) PO SCH (21:31)
[2021-09-15] MEDS: PRAZOSIN HCL 1 MG CAPSULE PO SCH (21:31)
[2021-09-15] MEDS: THIAMINE HCL 100 MG TABLET (FP) PO SCH (21:32)
[2021-09-15] MEDS: LIDOCAINE PATCH REMOVAL MC SCH (21:32)
[2021-09-15] MEDS: SUVOREXANT 10 MG TABLET PO PRN (21:33)
[2021-09-16] MEDS ORDERED: methaDONE HCL 10 MG TABLET ONE (03:02)
[2021-09-16] MEDS ORDERED: methaDONE HCL 40 MG DISPERSABLE TABLET ONE (03:03)
[2021-09-16] MEDS: methaDONE 40 MG, methaDONE 20 MG PO SCH (06:40)
[2021-09-16] MEDS: hydrOXYzine PAMOATE 25 MG CAPSULE (FP) PO PRN ×3 (06:45→13:43)
[2021-09-16] MEDS: PRENATAL VITAMINS W/ FOLIC ACID TABLET (FP) PO SCH (09:48)
[2021-09-16] MEDS: LIDOCAINE 5% TOPICAL PATCH TP SCH (09:48)
[2021-09-16] MEDS: LACTULOSE 20 GM/30 ML UDC (FOR ORAL USE ONLY) PO SCH ×4 (09:48→21:09)
[2021-09-16] MEDS: NICOTINE 10 MG CARTRIDGE (INHALER) IH PRN (11:10)
[2021-09-16] MEDS: MAG HYDROX/AL HYDROX/SIMETH 30 ML UNIT-DOSE CUP PO PRN (13:43)
[2021-09-16] MEDS: PRAZOSIN HCL 1 MG CAPSULE PO SCH (21:08)
[2021-09-16] MEDS: DOCUSATE SODIUM 100 MG CAPSULE (FP) PO SCH (21:08)
[2021-09-16] MEDS: LIDOCAINE PATCH REMOVAL MC SCH (21:09)
[2021-09-16] MEDS: THIAMINE HCL 100 MG TABLET (FP) PO SCH (21:09)
[2021-09-16] MEDS: SUVOREXANT 10 MG TABLET PO PRN (21:10)
[2021-09-17] MEDS: hydrOXYzine PAMOATE 25 MG CAPSULE (FP) PO PRN ×2 (01:48→10:24)
[2021-09-17] MEDS ORDERED: methaDONE HCL 40 MG DISPERSABLE TABLET ONE (02:55)
[2021-09-17] MEDS ORDERED: methaDONE HCL 10 MG TABLET ONE (02:55)
[2021-09-17] MEDS: methaDONE 40 MG, methaDONE 20 MG PO SCH (06:11)
[2021-09-17] MEDS: MAGNESIUM HYDROX 2400MG/30ML ORAL SUSPENSION 30 ML CUP PO PRN (06:15)
[2021-09-17] MEDS: PRENATAL VITAMINS W/ FOLIC ACID TABLET (FP) PO SCH (10:20)
[2021-09-17] MEDS: LIDOCAINE 5% TOPICAL PATCH TP SCH (10:20)
[2021-09-17] MEDS: LACTULOSE 20 GM/30 ML UDC (FOR ORAL USE ONLY) PO SCH ×4 (10:20→21:03)
[2021-09-17] MEDS: NICOTINE 10 MG CARTRIDGE (INHALER) IH PRN (10:24)
[2021-09-17] MEDS: THIAMINE HCL 100 MG TABLET (FP) PO SCH (21:02)
[2021-09-17] MEDS: DOCUSATE SODIUM 100 MG CAPSULE (FP) PO SCH (21:02)
[2021-09-17] MEDS: PRAZOSIN HCL 1 MG CAPSULE PO SCH (21:02)
[2021-09-17] MEDS: LIDOCAINE PATCH REMOVAL MC SCH (21:03)
[2021-09-17] MEDS: SUVOREXANT 10 MG TABLET PO PRN (21:03)
[2021-09-18] MEDS ORDERED: methaDONE HCL 10 MG TABLET ONE (02:45)
[2021-09-18] MEDS ORDERED: methaDONE HCL 40 MG DISPERSABLE TABLET ONE (02:46)
[2021-09-18] MEDS: hydrOXYzine PAMOATE 25 MG CAPSULE (FP) PO PRN ×3 (06:09→14:12)
[2021-09-18] MEDS: methaDONE 40 MG, methaDONE 20 MG PO SCH (06:10)
[2021-09-18] MEDS: IBUPROFEN 400 MG TABLET (FP) PO PRN ×2 (07:25→21:16)
[2021-09-18] MEDS ORDERED: SIMETHICONE 80 MG TAB.CHEW (FP) PO PRN (08:47)
[2021-09-18] MEDS: LACTULOSE 20 GM/30 ML UDC (FOR ORAL USE ONLY) PO SCH ×4 (10:18→21:15)
[2021-09-18] MEDS: LIDOCAINE 5% TOPICAL PATCH TP SCH (10:18)
[2021-09-18] MEDS: PRENATAL VITAMINS W/ FOLIC ACID TABLET (FP) PO SCH (10:18)
[2021-09-18] MEDS: THIAMINE HCL 100 MG TABLET (FP) PO SCH (21:14)
[2021-09-18] MEDS: PRAZOSIN HCL 1 MG CAPSULE PO SCH (21:15)
[2021-09-18] MEDS: DOCUSATE SODIUM 100 MG CAPSULE (FP) PO SCH (21:15)
[2021-09-18] MEDS: SUVOREXANT 15 MG TABLET PO PRN (21:16)
[2021-09-18] MEDS: LIDOCAINE PATCH REMOVAL MC SCH (21:17)
[2021-09-19] MEDS ORDERED: methaDONE HCL 10 MG TABLET ONE (02:21)
[2021-09-19] MEDS ORDERED: methaDONE HCL 40 MG DISPERSABLE TABLET ONE (02:22)
[2021-09-19] MEDS: methaDONE 40 MG, methaDONE 20 MG PO SCH (06:16)
[2021-09-19] MEDS: hydrOXYzine PAMOATE 25 MG CAPSULE (FP) PO PRN ×3 (06:18→13:48)
[2021-09-19] MEDS: IBUPROFEN 400 MG TABLET (FP) PO PRN ×2 (06:18→21:19)
[2021-09-19] MEDS: LACTULOSE 20 GM/30 ML UDC (FOR ORAL USE ONLY) PO SCH ×4 (10:20→21:18)
[2021-09-19] MEDS: PRENATAL VITAMINS W/ FOLIC ACID TABLET (FP) PO SCH (10:20)
[2021-09-19] MEDS: LIDOCAINE 5% TOPICAL PATCH TP SCH (10:21)
[2021-09-19] MEDS: NICOTINE 10 MG CARTRIDGE (INHALER) IH PRN (10:25)
[2021-09-19 12:41] LABS: HIV INTERPRETATION NEGATIVE (NEGATIVE)
[2021-09-19] MEDS: PRAZOSIN HCL 1 MG CAPSULE PO SCH (21:18)
[2021-09-19] MEDS: THIAMINE HCL 100 MG TABLET (FP) PO SCH (21:18)
[2021-09-19] MEDS: DOCUSATE SODIUM 100 MG CAPSULE (FP) PO SCH (21:18)
[2021-09-19] MEDS: SUVOREXANT 15 MG TABLET PO PRN (21:19)
[2021-09-19] MEDS: LIDOCAINE PATCH REMOVAL MC SCH (21:20)
[2021-09-20] MEDS ORDERED: methaDONE HCL 40 MG DISPERSABLE TABLET ONE (06:12)
[2021-09-20] MEDS ORDERED: methaDONE HCL 10 MG TABLET ONE (06:12)
[2021-09-20] MEDS: NICOTINE 10 MG CARTRIDGE (INHALER) IH PRN ×2 (06:17→17:05)
[2021-09-20] MEDS: methaDONE 40 MG, methaDONE 20 MG PO SCH (06:18)
[2021-09-20] MEDS: IBUPROFEN 400 MG TABLET (FP) PO PRN ×2 (06:20→17:04)
[2021-09-20] MEDS: hydrOXYzine PAMOATE 25 MG CAPSULE (FP) PO PRN ×3 (06:21→21:28)
[2021-09-20] MEDS: PRENATAL VITAMINS W/ FOLIC ACID TABLET (FP) PO SCH (10:40)
[2021-09-20] MEDS: LACTULOSE 20 GM/30 ML UDC (FOR ORAL USE ONLY) PO SCH ×4 (10:40→21:26)
[2021-09-20] MEDS: LIDOCAINE 5% TOPICAL PATCH TP SCH (10:41)
[2021-09-20] MEDS ORDERED: AMMONIUM LACTATE 12% LOTION 225 GM BOTTLE TP PRN (11:25)
[2021-09-20] MEDS ORDERED: COLLOIDAL OATMEAL 1 BAR EACH TP PRN (11:25)
[2021-09-20] MEDS: MAGNESIUM HYDROX 2400MG/30ML ORAL SUSPENSION 30 ML CUP PO PRN (13:05)
[2021-09-20] MEDS: DOCUSATE SODIUM 100 MG CAPSULE (FP) PO SCH (21:26)
[2021-09-20] MEDS: THIAMINE HCL 100 MG TABLET (FP) PO SCH (21:26)
[2021-09-20] MEDS: LIDOCAINE PATCH REMOVAL MC SCH (21:27)
[2021-09-20] MEDS: PRAZOSIN HCL 1 MG CAPSULE PO SCH (21:27)
[2021-09-20] MEDS: SUVOREXANT 15 MG TABLET PO PRN (21:28)
[2021-09-21] MEDS ORDERED: methaDONE HCL 10 MG TABLET ONE (05:36)
[2021-09-21] MEDS ORDERED: methaDONE HCL 40 MG DISPERSABLE TABLET ONE (05:36)
[2021-09-21] MEDS: methaDONE 40 MG, methaDONE 20 MG PO SCH (05:37)
[2021-09-21] MEDS: IBUPROFEN 400 MG TABLET (FP) PO PRN (05:38)
[2021-09-21] MEDS: PRENATAL VITAMINS W/ FOLIC ACID TABLET (FP) PO SCH (09:27)
[2021-09-21] MEDS: hydrOXYzine PAMOATE 25 MG CAPSULE (FP) PO PRN (09:27)
[2021-09-21] MEDS: LACTULOSE 20 GM/30 ML UDC (FOR ORAL USE ONLY) PO SCH ×4 (09:27→21:29)
[2021-09-21] MEDS: LIDOCAINE 5% TOPICAL PATCH TP SCH (09:28)
[2021-09-21] MEDS: NICOTINE 10 MG CARTRIDGE (INHALER) IH PRN (09:29)
[2021-09-21] MEDS: MAGNESIUM HYDROX 2400MG/30ML ORAL SUSPENSION 30 ML CUP PO PRN (09:48)
[2021-09-21] MEDS: DOCUSATE SODIUM 100 MG CAPSULE (FP) PO SCH (21:29)
[2021-09-21] MEDS: PRAZOSIN HCL 1 MG CAPSULE PO SCH (21:30)
[2021-09-21] MEDS: SUVOREXANT 15 MG TABLET PO PRN (21:30)
[2021-09-21] MEDS: THIAMINE HCL 100 MG TABLET (FP) PO SCH (21:30)
[2021-09-21] MEDS: LIDOCAINE PATCH REMOVAL MC SCH (21:31)
[2021-09-22] MEDS ORDERED: methaDONE HCL 10 MG TABLET ONE (03:08)
[2021-09-22] MEDS ORDERED: methaDONE HCL 40 MG DISPERSABLE TABLET ONE (03:08)
[2021-09-22] MEDS: methaDONE 40 MG, methaDONE 20 MG PO SCH (05:58)
[2021-09-22] MEDS: NICOTINE 10 MG CARTRIDGE (INHALER) IH PRN (06:32)
[2021-09-22] MEDS: LACTULOSE 20 GM/30 ML UDC (FOR ORAL USE ONLY) PO SCH ×4 (10:04→21:33)
[2021-09-22] MEDS: ESCITALOPRAM OXALATE 10 MG TABLET PO SCH (10:04)
[2021-09-22] MEDS: LIDOCAINE 5% TOPICAL PATCH TP SCH (10:04)
[2021-09-22] MEDS: PRENATAL VITAMINS W/ FOLIC ACID TABLET (FP) PO SCH (10:06)
[2021-09-22] MEDS: MAG HYDROX/AL HYDROX/SIMETH 30 ML UNIT-DOSE CUP PO PRN (14:08)
[2021-09-22] MEDS: THIAMINE HCL 100 MG TABLET (FP) PO SCH (21:29)
[2021-09-22] MEDS: PRAZOSIN HCL 1 MG CAPSULE PO SCH (21:30)
[2021-09-22] MEDS: DOCUSATE SODIUM 100 MG CAPSULE (FP) PO SCH (21:30)
[2021-09-22] MEDS: SUVOREXANT 15 MG TABLET PO PRN (21:30)
[2021-09-22] MEDS: hydrOXYzine PAMOATE 25 MG CAPSULE (FP) PO PRN (21:31)
[2021-09-22] MEDS: LIDOCAINE PATCH REMOVAL MC SCH (21:33)
[2021-09-23] MEDS ORDERED: methaDONE HCL 10 MG TABLET ONE (03:58)
[2021-09-23] MEDS ORDERED: methaDONE HCL 40 MG DISPERSABLE TABLET ONE (03:59)
[2021-09-23] MEDS: methaDONE 40 MG, methaDONE 20 MG PO SCH (06:38)
[2021-09-23] MEDS: hydrOXYzine PAMOATE 25 MG CAPSULE (FP) PO PRN ×2 (06:39→10:26)
[2021-09-23] MEDS: NICOTINE 10 MG CARTRIDGE (INHALER) IH PRN (06:40)
[2021-09-23] MEDS: ESCITALOPRAM OXALATE 10 MG TABLET PO SCH (10:26)
[2021-09-23] MEDS: LACTULOSE 20 GM/30 ML UDC (FOR ORAL USE ONLY) PO SCH ×4 (10:26→21:15)
[2021-09-23] MEDS: LIDOCAINE 5% TOPICAL PATCH TP SCH (10:27)
[2021-09-23] MEDS: PRENATAL VITAMINS W/ FOLIC ACID TABLET (FP) PO SCH (10:27)
[2021-09-23] MEDS: THIAMINE HCL 100 MG TABLET (FP) PO SCH (21:15)
[2021-09-23] MEDS: DOCUSATE SODIUM 100 MG CAPSULE (FP) PO SCH (21:16)
[2021-09-23] MEDS: PRAZOSIN HCL 1 MG CAPSULE PO SCH (21:16)
[2021-09-23] MEDS: SUVOREXANT 15 MG TABLET PO PRN (21:16)
[2021-09-23] MEDS: LIDOCAINE PATCH REMOVAL MC SCH (21:17)
[2021-09-24] MEDS ORDERED: methaDONE HCL 10 MG TABLET ONE (03:49)
[2021-09-24] MEDS ORDERED: methaDONE HCL 40 MG DISPERSABLE TABLET ONE (03:49)
[2021-09-24] MEDS: methaDONE 40 MG, methaDONE 20 MG PO SCH (06:37)
[2021-09-24] MEDS: NICOTINE 10 MG CARTRIDGE (INHALER) IH PRN (06:39)
[2021-09-24 07:03] VITALS: BP 136/84; PULSE 75; TEMP 97.7
[2021-09-24] MEDS: LACTULOSE 20 GM/30 ML UDC (FOR ORAL USE ONLY) PO SCH (09:39)
[2021-09-24] MEDS: PRENATAL VITAMINS W/ FOLIC ACID TABLET (FP) PO SCH (09:39)
[2021-09-24] MEDS: LIDOCAINE 5% TOPICAL PATCH TP SCH (09:39)
[2021-09-24] MEDS: ESCITALOPRAM OXALATE 10 MG TABLET PO SCH (09:39)
[2021-09-24] MEDS: hydrOXYzine PAMOATE 25 MG CAPSULE (FP) PO PRN (09:40)
== END 2021-09-24 09:55 | disposition home or self-care (01) | DRG 772 ==
LOC: YASAS 13:01 → Y3W 13:02
PROVIDERS: ADMIT Allergy & Immunology; ATTEND Psychiatry & Neurology Pain Medicine
PROC: HZ42ZZZ Group Counseling for Substance Abuse Treatment, Cognitive-Behavioral (ICD-10-PCS; principal; 2021-09-10)
DX: F10.20 Alcohol dependence, uncomplicated (principal); F11.20 Opioid dependence, uncomplicated; F14.20 Cocaine dependence, uncomplicated; F19.282 Other psychoactive substance dependence with psychoactive substance-induced sleep disorder; I10 Essential (primary) hypertension; B18.2 Chronic viral hepatitis C; R21 Rash and other nonspecific skin eruption; L98.8 Other specified disorders of the skin and subcutaneous tissue; L29.8 Other pruritus; R14.0 Abdominal distension (gaseous); E72.20 Disorder of urea cycle metabolism, unspecified; Z86.11 Personal history of tuberculosis; Z94.0 Kidney transplant status; Z56.0 Unemployment, unspecified
CPT/HCPCS: 36415; 71045-TC-FY; 74021-TC-FY; 74176-TC; 80053; 82140; 83605; 83690; 85025; 85610; 85730; 86803; 87389; 87522; 93005; 93010

== ENCOUNTER 2021-12-28 22:35 | Inpatient (IN) | payer OTHER ==
[2021-12-29 00:49] VITALS: BMI 31.1
[2021-12-29] MEDS ORDERED: IBUPROFEN 600 MG TABLET (FP) PO PRN (01:27)
[2021-12-29] MEDS ORDERED: MAGNESIUM CITRATE 300 ML BOTTLE PO PRN (01:27)
[2021-12-29] MEDS ORDERED: guaiFENesin 200 MG/10 ML 10 ML UNIT-DOSE CUPS PO PRN (01:27)
[2021-12-29] MEDS ORDERED: P-EPHED 60MG/TRIPROLIDI 2.5MG TABLET PO PRN (01:27)
[2021-12-29] MEDS ORDERED: DICYCLOMINE HCL 10 MG CAPSULE PO PRN (01:27)
[2021-12-29] MEDS ORDERED: LOPERAMIDE HCL 2 MG CAPSULE PO PRN (01:27)
[2021-12-29] MEDS ORDERED: NICOTINE POLACRILEX 2 MG GUM BUC PRN (01:27)
[2021-12-29] MEDS ORDERED: MAG HYDROX/AL HYDROX/SIMETH 30 ML UNIT-DOSE CUP PO PRN (01:27)
[2021-12-29] MEDS ORDERED: NALOXONE HCL (KLOXXADO) 8 MG SPRAY NS PRN (01:27)
[2021-12-29] MEDS ORDERED: MAGNESIUM HYDROX 2400MG/30ML ORAL SUSPENSION 30 ML CUP PO PRN (01:27)
[2021-12-29] MEDS ORDERED: BISMUTH SUBSALICYLATE 524 MG/30 ML PO PRN (01:27)
[2021-12-29] MEDS ORDERED: ONDANSETRON *ODT* 4 MG TABLET SL PRN (01:27)
[2021-12-29] MEDS ORDERED: ACETAMINOPHEN 325 MG TABLET (FP) PO PRN (01:27)
[2021-12-29] MEDS ORDERED: IBUPROFEN 400 MG TABLET (FP) PO PRN (01:27)
[2021-12-29] MEDS ORDERED: BENZOCAINE/MENTHOL (CHLORASEPTIC ) LOZENGE MM PRN (01:27)
[2021-12-29] MEDS: ACETAMINOPHEN 325 MG TABLET (FP) PO PRN (02:55)
[2021-12-29] MEDS: hydrOXYzine PAMOATE 25 MG CAPSULE (FP) PO PRN ×3 (02:57→22:37)
[2021-12-29] MEDS: METHOCARBAMOL 500 MG TABLET PO PRN ×2 (02:57→22:37)
[2021-12-29] MEDS ORDERED: methaDONE HCL 40 MG DISPERSABLE TABLET PO SCH (10:00)
[2021-12-29] MEDS: methaDONE 40 MG, methaDONE 20 MG PO SCH (10:34)
[2021-12-29] MEDS: PRENATAL VITAMINS W/ FOLIC ACID TABLET (FP) PO SCH (10:34)
[2021-12-29 11:11] LABS: HEMOGLOBIN 14.4 GM/dL (11.7-16.9); MCH 28.4 pg (25.7-33.7); MCHC 33.4 g/dl (32.0-35.9); MEAN CELL VOLUME 85.2 fl (80-96); MEAN PLT VOLUME 8.7 fl (7.5-11.1); PLATELET COUNT 108 10^3/uL (134-434); RBC 5.05 M/mm3 (4.00-5.60); RDW 14.5 % (11.9-15.9); WHITE BLOOD COUNT 6.6 K/mm3 (4.0-10.0)
[2021-12-29 11:24] LABS: ALBUMIN 3.3 g/dl (3.4-5.0); BLOOD UREA NITROGEN 19.3 mg/dL (7-18); CALCIUM 9.4 mg/dL (8.5-10.1)
[2021-12-29 11:28] LABS: CREATININE 1.2 mg/dL (0.55-1.3)
[2021-12-29 11:29] LABS: TOT PROT 7.8 g/dl (6.4-8.2)
[2021-12-29 11:30] LABS: BILIRUBIN,TOTAL 0.6 mg/dL (0.2-1)
[2021-12-29] MEDS ORDERED: FLU VACC QS2022-23(6MOS UP)/PF 60 MCG/0.5 ML SYRINGE IM ONE (12:00)
[2021-12-29] MEDS: NICOTINE 21 MG/24 HOURS TOPICAL PATCH TD SCH (12:02)
[2021-12-29 20:18] LABS: PH,URINE 6.5 (5.0-8.0); URINE APPEARANCE CLEAR; URINE BILIRUBIN NEGATIVE (NEGATIVE); URINE COLOR YELLOW; URINE GLUCOSE (UA) NEGATIVE (NEGATIVE); URINE KETONE NEGATIVE (NEGATIVE); URINE LEUK ESTERASE NEGATIVE (NEGATIVE); URINE NITRITE NEGATIVE (NEGATIVE); URINE PROTEIN TRACE (NEGATIVE)
[2021-12-29] MEDS ORDERED: MELATONIN 5 MG TABLETS PO SCH (22:00)
[2021-12-29] MEDS: THIAMINE HCL 100 MG TABLET (FP) PO SCH (22:36)
[2021-12-29] MEDS: NICOTINE 10 MG CARTRIDGE (INHALER) IH PRN (22:38)
[2021-12-29] MEDS: SUVOREXANT 10 MG TABLET PO PRN (22:38)
[2021-12-30] MEDS: methaDONE 40 MG, methaDONE 20 MG PO SCH (05:47)
[2021-12-30] MEDS: ACETAMINOPHEN 325 MG TABLET (FP) PO PRN (05:51)
[2021-12-30] MEDS: NICOTINE 10 MG CARTRIDGE (INHALER) IH PRN ×3 (09:31→22:27)
[2021-12-30] MEDS: NICOTINE 21 MG/24 HOURS TOPICAL PATCH TD SCH (10:25)
[2021-12-30] MEDS: hydrOXYzine PAMOATE 25 MG CAPSULE (FP) PO PRN ×3 (10:26→22:26)
[2021-12-30] MEDS: PRENATAL VITAMINS W/ FOLIC ACID TABLET (FP) PO SCH (10:27)
[2021-12-30] MEDS: THIAMINE HCL 100 MG TABLET (FP) PO SCH (22:24)
[2021-12-30] MEDS: SUVOREXANT 10 MG TABLET PO PRN (22:25)
[2021-12-31] MEDS: NICOTINE 10 MG CARTRIDGE (INHALER) IH PRN ×2 (04:11→17:10)
[2021-12-31] MEDS: methaDONE 40 MG, methaDONE 20 MG PO SCH (05:20)
[2021-12-31] MEDS: METHOCARBAMOL 500 MG TABLET PO PRN (05:24)
[2021-12-31] MEDS: PRENATAL VITAMINS W/ FOLIC ACID TABLET (FP) PO SCH (10:06)
[2021-12-31] MEDS: NICOTINE 21 MG/24 HOURS TOPICAL PATCH TD SCH (10:06)
[2021-12-31] MEDS: hydrOXYzine PAMOATE 25 MG CAPSULE (FP) PO PRN ×2 (10:07→15:52)
[2021-12-31 12:02] VITALS: RESP 18
[2021-12-31 17:18] VITALS: BP 129/86; PULSE 69; TEMP 97.7
== END 2021-12-31 05:30 | disposition other institution (70) | DRG 773 ==
LOC: YASAS 22:35 → Y6N 12-29 02:02 → UNDOADMIN 12-29 02:02 → Y6N 12-29 08:58 → UNDODISIN 12-31 05:30
PROVIDERS: ADMIT Allergy & Immunology; ATTEND Surgery
PROC: HZ2ZZZZ Detoxification Services for Substance Abuse Treatment (ICD-10-PCS; principal; 2021-12-29)
DX: F10.230 Alcohol dependence with withdrawal, uncomplicated (principal); F13.230 Sedative, hypnotic or anxiolytic dependence with withdrawal, uncomplicated; F11.20 Opioid dependence, uncomplicated; F14.20 Cocaine dependence, uncomplicated; F17.210 Nicotine dependence, cigarettes, uncomplicated; F19.282 Other psychoactive substance dependence with psychoactive substance-induced sleep disorder; F19.24 Other psychoactive substance dependence with psychoactive substance-induced mood disorder; R76.11 Nonspecific reaction to tuberculin skin test without active tuberculosis; Z94.0 Kidney transplant status
CPT/HCPCS: 36415; 71046-TC-FY; 80053; 81003; 82962; 85027; 86780; 87811

== ENCOUNTER 2021-12-31 18:13 | Inpatient (IN) | payer OTHER ==
[2021-12-31] MEDS ORDERED: guaiFENesin 200 MG/10 ML 10 ML UNIT-DOSE CUPS PO PRN (22:02)
[2021-12-31] MEDS ORDERED: BENZOCAINE/MENTHOL (CHLORASEPTIC ) LOZENGE MM PRN (22:02)
[2021-12-31] MEDS ORDERED: P-EPHED 60MG/TRIPROLIDI 2.5MG TABLET PO PRN (22:02)
[2021-12-31] MEDS ORDERED: MAG HYDROX/AL HYDROX/SIMETH 30 ML UNIT-DOSE CUP PO PRN (22:02)
[2021-12-31] MEDS ORDERED: LOPERAMIDE HCL 2 MG CAPSULE PO PRN (22:02)
[2021-12-31] MEDS ORDERED: MAGNESIUM CITRATE 300 ML BOTTLE PO PRN (22:02)
[2021-12-31] MEDS ORDERED: MAGNESIUM HYDROX 2400MG/30ML ORAL SUSPENSION 30 ML CUP PO PRN (22:02)
[2021-12-31] MEDS: hydrOXYzine PAMOATE 25 MG CAPSULE (FP) PO PRN (22:59)
[2021-12-31] MEDS: MELATONIN 5 MG TABLETS PO PRN (23:00)
[2022-01-01] MEDS ORDERED: methaDONE HCL 40 MG DISPERSABLE TABLET PO SCH (06:00)
[2022-01-01] MEDS: methaDONE 40 MG, methaDONE 20 MG PO SCH (06:14)
[2022-01-01] MEDS: hydrOXYzine PAMOATE 25 MG CAPSULE (FP) PO PRN ×4 (06:16→21:27)
[2022-01-01] MEDS: PRENATAL VITAMINS W/ FOLIC ACID TABLET (FP) PO SCH (09:51)
[2022-01-01 12:23] LABS: HIV INTERPRETATION NEGATIVE (NEGATIVE)
[2022-01-01] MEDS: ACETAMINOPHEN 325 MG TABLET (FP) PO PRN (21:27)
[2022-01-01] MEDS: MELATONIN 5 MG TABLETS PO PRN (21:27)
[2022-01-01] MEDS: THIAMINE HCL 100 MG TABLET (FP) PO SCH (21:27)
[2022-01-02] MEDS: methaDONE 40 MG, methaDONE 20 MG PO SCH (06:18)
[2022-01-02] MEDS: ACETAMINOPHEN 325 MG TABLET (FP) PO PRN ×4 (06:18→21:23)
[2022-01-02] MEDS: hydrOXYzine PAMOATE 25 MG CAPSULE (FP) PO PRN ×4 (06:21→21:24)
[2022-01-02] MEDS: COLLOIDAL OATMEAL 1 BAR EACH TP PRN (06:35)
[2022-01-02] MEDS: PRENATAL VITAMINS W/ FOLIC ACID TABLET (FP) PO SCH (10:27)
[2022-01-02] MEDS: PRAZOSIN HCL 1 MG CAPSULE PO SCH (21:24)
[2022-01-02] MEDS: THIAMINE HCL 100 MG TABLET (FP) PO SCH (21:24)
[2022-01-02] MEDS: TOLNAFTATE 1% CREAM 15 GM TUBE TP SCH (21:25)
[2022-01-02] MEDS ORDERED: SUVOREXANT 15 MG TABLET PO PRN (22:00)
[2022-01-03] MEDS: hydrOXYzine PAMOATE 25 MG CAPSULE (FP) PO PRN ×3 (06:27→21:19)
[2022-01-03] MEDS: methaDONE 40 MG, methaDONE 20 MG PO SCH (06:27)
[2022-01-03] MEDS: TOLNAFTATE 1% CREAM 15 GM TUBE TP SCH ×2 (09:43→21:21)
[2022-01-03] MEDS: PRENATAL VITAMINS W/ FOLIC ACID TABLET (FP) PO SCH (09:43)
[2022-01-03] MEDS: NICOTINE 10 MG CARTRIDGE (INHALER) IH PRN ×2 (09:44→19:22)
[2022-01-03] MEDS: ACETAMINOPHEN 325 MG TABLET (FP) PO PRN ×2 (09:45→21:18)
[2022-01-03] MEDS: PRAZOSIN HCL 1 MG CAPSULE PO SCH (21:17)
[2022-01-03] MEDS: THIAMINE HCL 100 MG TABLET (FP) PO SCH (21:18)
[2022-01-04] MEDS: hydrOXYzine PAMOATE 25 MG CAPSULE (FP) PO PRN ×2 (06:08→18:33)
[2022-01-04] MEDS: methaDONE 40 MG, methaDONE 20 MG PO SCH (06:08)
[2022-01-04] MEDS: NICOTINE 10 MG CARTRIDGE (INHALER) IH PRN ×2 (06:09→09:47)
[2022-01-04] MEDS: ACETAMINOPHEN 325 MG TABLET (FP) PO PRN ×2 (09:48→18:32)
[2022-01-04] MEDS: TOLNAFTATE 1% CREAM 15 GM TUBE TP SCH ×2 (09:50→21:17)
[2022-01-04] MEDS: PRENATAL VITAMINS W/ FOLIC ACID TABLET (FP) PO SCH (09:50)
[2022-01-04] MEDS: PRAZOSIN HCL 1 MG CAPSULE PO SCH (21:16)
[2022-01-04] MEDS: THIAMINE HCL 100 MG TABLET (FP) PO SCH (21:16)
[2022-01-05] MEDS: methaDONE 40 MG, methaDONE 20 MG PO SCH (06:54)
[2022-01-05] MEDS: NICOTINE 10 MG CARTRIDGE (INHALER) IH PRN ×2 (06:55→21:26)
[2022-01-05] MEDS: hydrOXYzine PAMOATE 25 MG CAPSULE (FP) PO PRN ×3 (06:56→21:25)
[2022-01-05] MEDS: ACETAMINOPHEN 325 MG TABLET (FP) PO PRN ×2 (10:01→16:01)
[2022-01-05] MEDS: PRENATAL VITAMINS W/ FOLIC ACID TABLET (FP) PO SCH (10:01)
[2022-01-05] MEDS: TOLNAFTATE 1% CREAM 15 GM TUBE TP SCH ×2 (10:01→21:27)
[2022-01-05] MEDS: MELATONIN 5 MG TABLETS PO PRN (21:25)
[2022-01-05] MEDS: QUEtiapine FUMARATE 50 MG TABLET PO SCH (21:25)
[2022-01-05] MEDS: THIAMINE HCL 100 MG TABLET (FP) PO SCH (21:26)
[2022-01-05] MEDS: PRAZOSIN HCL 1 MG CAPSULE PO SCH (21:27)
[2022-01-06] MEDS: methaDONE 40 MG, methaDONE 20 MG PO SCH (06:21)
[2022-01-06] MEDS: hydrOXYzine PAMOATE 25 MG CAPSULE (FP) PO PRN ×3 (06:22→21:11)
[2022-01-06] MEDS: ACETAMINOPHEN 325 MG TABLET (FP) PO PRN ×3 (06:22→21:11)
[2022-01-06] MEDS: NICOTINE 10 MG CARTRIDGE (INHALER) IH PRN ×2 (06:25→21:13)
[2022-01-06] MEDS: PRENATAL VITAMINS W/ FOLIC ACID TABLET (FP) PO SCH (09:38)
[2022-01-06] MEDS: TOLNAFTATE 1% CREAM 15 GM TUBE TP SCH ×2 (09:38→21:51)
[2022-01-06] MEDS: PRAZOSIN HCL 1 MG CAPSULE PO SCH (21:10)
[2022-01-06] MEDS: QUEtiapine FUMARATE 50 MG TABLET PO SCH (21:10)
[2022-01-06] MEDS: THIAMINE HCL 100 MG TABLET (FP) PO SCH (21:54)
[2022-01-07] MEDS: ACETAMINOPHEN 325 MG TABLET (FP) PO PRN ×3 (06:31→21:08)
[2022-01-07] MEDS: hydrOXYzine PAMOATE 25 MG CAPSULE (FP) PO PRN ×3 (06:31→21:07)
[2022-01-07] MEDS: methaDONE 40 MG, methaDONE 20 MG PO SCH (06:31)
[2022-01-07] MEDS: NICOTINE 10 MG CARTRIDGE (INHALER) IH PRN (06:48)
[2022-01-07] MEDS: TOLNAFTATE 1% CREAM 15 GM TUBE TP SCH (09:50)
[2022-01-07] MEDS: PRENATAL VITAMINS W/ FOLIC ACID TABLET (FP) PO SCH (09:50)
[2022-01-07] MEDS: PRAZOSIN HCL 1 MG CAPSULE PO SCH (21:07)
[2022-01-07] MEDS: THIAMINE HCL 100 MG TABLET (FP) PO SCH (21:07)
[2022-01-07] MEDS: QUEtiapine FUMARATE 50 MG TABLET PO SCH (21:08)
[2022-01-08] MEDS: methaDONE 40 MG, methaDONE 20 MG PO SCH (06:13)
[2022-01-08] MEDS: hydrOXYzine PAMOATE 25 MG CAPSULE (FP) PO PRN ×2 (06:13→21:15)
[2022-01-08] MEDS: ACETAMINOPHEN 325 MG TABLET (FP) PO PRN ×2 (06:14→21:15)
[2022-01-08] MEDS: NICOTINE 10 MG CARTRIDGE (INHALER) IH PRN (06:14)
[2022-01-08] MEDS: PRENATAL VITAMINS W/ FOLIC ACID TABLET (FP) PO SCH (09:14)
[2022-01-08] MEDS: THIAMINE HCL 100 MG TABLET (FP) PO SCH (21:14)
[2022-01-08] MEDS: QUEtiapine FUMARATE 50 MG TABLET PO SCH (21:15)
[2022-01-08] MEDS: PRAZOSIN HCL 1 MG CAPSULE PO SCH (21:15)
[2022-01-08] MEDS: COLLOIDAL OATMEAL 1 BAR EACH TP PRN (21:17)
[2022-01-08] MEDS: TOLNAFTATE 1% CREAM 15 GM TUBE TP PRN (21:18)
[2022-01-09] MEDS: hydrOXYzine PAMOATE 25 MG CAPSULE (FP) PO PRN ×2 (06:18→21:32)
[2022-01-09] MEDS: methaDONE 40 MG, methaDONE 20 MG PO SCH (06:18)
[2022-01-09] MEDS: NICOTINE 10 MG CARTRIDGE (INHALER) IH PRN (06:20)
[2022-01-09] MEDS: PRENATAL VITAMINS W/ FOLIC ACID TABLET (FP) PO SCH (09:41)
[2022-01-09] MEDS: ACETAMINOPHEN 325 MG TABLET (FP) PO PRN (09:41)
[2022-01-09] MEDS: IBUPROFEN 400 MG TABLET (FP) PO PRN (13:55)
[2022-01-09] MEDS: THIAMINE HCL 100 MG TABLET (FP) PO SCH (21:32)
[2022-01-09] MEDS: QUEtiapine FUMARATE 50 MG TABLET PO SCH (21:32)
[2022-01-09] MEDS: PRAZOSIN HCL 1 MG CAPSULE PO SCH (21:32)
[2022-01-10] MEDS: hydrOXYzine PAMOATE 25 MG CAPSULE (FP) PO PRN ×3 (06:07→21:12)
[2022-01-10] MEDS: methaDONE 40 MG, methaDONE 20 MG PO SCH (06:07)
[2022-01-10] MEDS: NICOTINE 10 MG CARTRIDGE (INHALER) IH PRN ×2 (06:07→21:14)
[2022-01-10] MEDS: ACETAMINOPHEN 325 MG TABLET (FP) PO PRN ×3 (06:07→21:13)
[2022-01-10] MEDS: PRENATAL VITAMINS W/ FOLIC ACID TABLET (FP) PO SCH (10:03)
[2022-01-10] MEDS: TOLNAFTATE 1% CREAM 15 GM TUBE TP PRN (10:04)
[2022-01-10] MEDS: THIAMINE HCL 100 MG TABLET (FP) PO SCH (21:11)
[2022-01-10] MEDS: QUEtiapine FUMARATE 50 MG TABLET PO SCH (21:12)
[2022-01-10] MEDS: PRAZOSIN HCL 1 MG CAPSULE PO SCH (21:12)
[2022-01-11] MEDS: methaDONE 40 MG, methaDONE 20 MG PO SCH (06:21)
[2022-01-11] MEDS: NICOTINE 10 MG CARTRIDGE (INHALER) IH PRN ×2 (06:23→15:32)
[2022-01-11] MEDS: hydrOXYzine PAMOATE 25 MG CAPSULE (FP) PO PRN ×4 (06:24→21:42)
[2022-01-11] MEDS: PRENATAL VITAMINS W/ FOLIC ACID TABLET (FP) PO SCH (09:42)
[2022-01-11] MEDS: ACETAMINOPHEN 325 MG TABLET (FP) PO PRN ×2 (10:44→21:42)
[2022-01-11] MEDS: QUEtiapine FUMARATE 50 MG TABLET PO SCH (21:42)
[2022-01-11] MEDS: PRAZOSIN HCL 1 MG CAPSULE PO SCH (21:42)
[2022-01-11] MEDS: THIAMINE HCL 100 MG TABLET (FP) PO SCH (21:42)
[2022-01-12] MEDS: methaDONE 40 MG, methaDONE 20 MG PO SCH (06:07)
[2022-01-12] MEDS: hydrOXYzine PAMOATE 25 MG CAPSULE (FP) PO PRN ×3 (06:09→21:22)
[2022-01-12] MEDS: NICOTINE 10 MG CARTRIDGE (INHALER) IH PRN (06:09)
[2022-01-12] MEDS: PRENATAL VITAMINS W/ FOLIC ACID TABLET (FP) PO SCH (09:12)
[2022-01-12] MEDS: ACETAMINOPHEN 325 MG TABLET (FP) PO PRN (09:13)
[2022-01-12] MEDS: THIAMINE HCL 100 MG TABLET (FP) PO SCH (21:21)
[2022-01-12] MEDS: QUEtiapine FUMARATE 50 MG TABLET PO SCH (21:22)
[2022-01-12] MEDS: PRAZOSIN HCL 1 MG CAPSULE PO SCH (21:22)
[2022-01-12] MEDS: IBUPROFEN 400 MG TABLET (FP) PO PRN (21:23)
[2022-01-13] MEDS: methaDONE 40 MG, methaDONE 20 MG PO SCH (06:13)
[2022-01-13] MEDS: IBUPROFEN 400 MG TABLET (FP) PO PRN ×2 (06:14→21:18)
[2022-01-13] MEDS: hydrOXYzine PAMOATE 25 MG CAPSULE (FP) PO PRN ×2 (06:16→21:16)
[2022-01-13] MEDS: PRENATAL VITAMINS W/ FOLIC ACID TABLET (FP) PO SCH (09:28)
[2022-01-13] MEDS: NICOTINE 10 MG CARTRIDGE (INHALER) IH PRN (09:28)
[2022-01-13] MEDS: THIAMINE HCL 100 MG TABLET (FP) PO SCH (21:16)
[2022-01-13] MEDS: QUEtiapine FUMARATE 50 MG TABLET PO SCH (21:16)
[2022-01-13] MEDS: PRAZOSIN HCL 1 MG CAPSULE PO SCH (21:17)
[2022-01-14] MEDS ORDERED: methaDONE 40 MG, methaDONE 20 MG PO SCH (06:00)
[2022-01-14] MEDS: hydrOXYzine PAMOATE 25 MG CAPSULE (FP) PO PRN (06:12)
[2022-01-14] MEDS: NICOTINE 10 MG CARTRIDGE (INHALER) IH PRN (06:12)
[2022-01-14 06:52] VITALS: BP 118/79; PULSE 78; RESP 16; TEMP 97.3
== END 2022-01-14 08:48 | disposition home or self-care (01) | DRG 772 ==
LOC: YASAS 18:13 → Y3E 18:15
PROVIDERS: ADMIT Allergy & Immunology; ATTEND Surgery
PROC: HZ42ZZZ Group Counseling for Substance Abuse Treatment, Cognitive-Behavioral (ICD-10-PCS; principal; 2021-12-31)
DX: F11.20 Opioid dependence, uncomplicated (principal); F10.20 Alcohol dependence, uncomplicated; F14.20 Cocaine dependence, uncomplicated; F13.20 Sedative, hypnotic or anxiolytic dependence, uncomplicated; F17.210 Nicotine dependence, cigarettes, uncomplicated; F19.282 Other psychoactive substance dependence with psychoactive substance-induced sleep disorder; I10 Essential (primary) hypertension; B35.3 Tinea pedis; L84 Corns and callosities; Z94.0 Kidney transplant status; Z86.19 Personal history of other infectious and parasitic diseases
CPT/HCPCS: 36415; 87389

== ENCOUNTER 2022-04-07 11:56 | Inpatient (IN) | payer OTHER ==
[2022-04-07 13:15] VITALS: BMI 33.0
[2022-04-07] MEDS ORDERED: POLYETHYLENE GLYCOL (HEALTHYLAX) 3350 17 GM PACKET PO PRN (16:09)
[2022-04-07] MEDS ORDERED: LOPERAMIDE HCL 2 MG CAPSULE PO PRN (16:09)
[2022-04-07] MEDS ORDERED: MAG HYDROX/AL HYDROX/SIMETH 30 ML UNIT-DOSE CUP PO PRN (16:09)
[2022-04-07] MEDS ORDERED: guaiFENesin 200 MG/10 ML 10 ML UNIT-DOSE CUPS PO PRN (16:09)
[2022-04-07] MEDS ORDERED: P-EPHED 60MG/TRIPROLIDI 2.5MG TABLET PO PRN (16:09)
[2022-04-07] MEDS ORDERED: MAGNESIUM HYDROX 2400MG/30ML ORAL SUSPENSION 30 ML CUP PO PRN (16:09)
[2022-04-07] MEDS ORDERED: BENZOCAINE/MENTHOL (CHLORASEPTIC ) LOZENGE MM PRN (16:09)
[2022-04-07] MEDS ORDERED: NICOTINE 10 MG CARTRIDGE (INHALER) IH PRN (16:09)
[2022-04-07] MEDS: THIAMINE HCL 100 MG TABLET (FP) PO SCH (21:57)
[2022-04-07] MEDS ORDERED: MELATONIN 5 MG TABLETS PO SCH (22:00)
[2022-04-08] MEDS ORDERED: methaDONE HCL 10 MG TABLET PO SCH (09:15)
[2022-04-08] MEDS ORDERED: methaDONE 40 MG, methaDONE 20 MG PO ONE (09:30)
[2022-04-08] MEDS: PRENATAL VITAMINS W/ FOLIC ACID TABLET (FP) PO SCH (09:48)
[2022-04-08] MEDS: NICOTINE 21 MG/24 HOURS TOPICAL PATCH TD SCH (10:12)
[2022-04-08 10:54] LABS: HEMATOCRIT 39.1 % (35.4-49); HEMOGLOBIN 12.8 GM/dL (11.7-16.9); MCH 27.7 pg (25.7-33.7); MCHC 32.9 g/dl (32.0-35.9); MEAN CELL VOLUME 84.3 fl (80-96); MEAN PLT VOLUME 8.3 fl (7.5-11.1); PLATELET COUNT 107 10^3/uL (134-434); RBC 4.63 M/mm3 (4.00-5.60); RDW 14.2 % (11.9-15.9); WHITE BLOOD COUNT 5.1 K/mm3 (4.0-10.0)
[2022-04-08 11:02] LABS: ALBUMIN 3.2 g/dl (3.4-5.0); BLOOD UREA NITROGEN 23.8 mg/dL (7-18); CALCIUM 9.4 mg/dL (8.5-10.1)
[2022-04-08 11:05] LABS: CREATININE 1.1 mg/dL (0.55-1.3)
[2022-04-08 11:06] LABS: TOT PROT 7.9 g/dl (6.4-8.2)
[2022-04-08 11:07] LABS: BILIRUBIN,TOTAL 0.6 mg/dL (0.2-1)
[2022-04-08] MEDS: hydrOXYzine PAMOATE 25 MG CAPSULE (FP) PO PRN ×2 (13:03→19:28)
[2022-04-08] MEDS: THIAMINE HCL 100 MG TABLET (FP) PO SCH (21:38)
[2022-04-08] MEDS: SUVOREXANT 10 MG TABLET PO PRN (21:40)
[2022-04-09] MEDS: methaDONE 40 MG, methaDONE 20 MG PO SCH (06:34)
[2022-04-09] MEDS: hydrOXYzine PAMOATE 25 MG CAPSULE (FP) PO PRN ×4 (06:36→21:42)
[2022-04-09] MEDS: NICOTINE 21 MG/24 HOURS TOPICAL PATCH TD SCH (09:26)
[2022-04-09] MEDS: PRENATAL VITAMINS W/ FOLIC ACID TABLET (FP) PO SCH (09:26)
[2022-04-09 20:34] LABS: EPI CELLS 12 /uL (0-25.1); HYALINE CASTS 5 /uL (0-3.1); PH,URINE 6.5 (5.0-8.0); URINE APPEARANCE CLOUDY; URINE BACTERIA 253 /uL (0-1359); URINE BILIRUBIN NEGATIVE (NEGATIVE); URINE COLOR YELLOW; URINE GLUCOSE (UA) NEGATIVE (NEGATIVE); URINE KETONE NEGATIVE (NEGATIVE); URINE LEUK ESTERASE NEGATIVE (NEGATIVE); URINE NITRITE NEGATIVE (NEGATIVE); URINE PROTEIN 2+ (NEGATIVE); URINE RBC 19 /uL (0-23.9); URINE UROBILINOGEN 0.2 mg/dL (0.2-1.0); URINE WBC 51 /uL (0-25.8)
[2022-04-09] MEDS: ACETAMINOPHEN 325 MG TABLET (FP) PO PRN (21:41)
[2022-04-09] MEDS: SUVOREXANT 10 MG TABLET PO PRN (21:42)
[2022-04-09] MEDS: THIAMINE HCL 100 MG TABLET (FP) PO SCH (21:43)
[2022-04-10] MEDS: hydrOXYzine PAMOATE 25 MG CAPSULE (FP) PO PRN ×4 (06:40→21:26)
[2022-04-10] MEDS: methaDONE 40 MG, methaDONE 20 MG PO SCH (06:41)
[2022-04-10] MEDS: PRENATAL VITAMINS W/ FOLIC ACID TABLET (FP) PO SCH (09:21)
[2022-04-10] MEDS: NICOTINE 21 MG/24 HOURS TOPICAL PATCH TD SCH (09:22)
[2022-04-10] MEDS: THIAMINE HCL 100 MG TABLET (FP) PO SCH (21:26)
[2022-04-11] MEDS: methaDONE 40 MG, methaDONE 20 MG PO SCH (06:20)
[2022-04-11] MEDS: hydrOXYzine PAMOATE 25 MG CAPSULE (FP) PO PRN ×4 (06:23→21:24)
[2022-04-11] MEDS: PRENATAL VITAMINS W/ FOLIC ACID TABLET (FP) PO SCH (09:18)
[2022-04-11] MEDS: NICOTINE 21 MG/24 HOURS TOPICAL PATCH TD SCH (09:18)
[2022-04-11] MEDS: THIAMINE HCL 100 MG TABLET (FP) PO SCH (21:24)
[2022-04-11] MEDS ORDERED: SUVOREXANT 10 MG TABLET PO PRN (22:00)
[2022-04-12] MEDS: methaDONE 40 MG, methaDONE 20 MG PO SCH (06:35)
[2022-04-12] MEDS: hydrOXYzine PAMOATE 25 MG CAPSULE (FP) PO PRN ×2 (06:37→10:40)
[2022-04-12] MEDS: PRENATAL VITAMINS W/ FOLIC ACID TABLET (FP) PO SCH (09:33)
[2022-04-12] MEDS: NICOTINE 21 MG/24 HOURS TOPICAL PATCH TD SCH (09:33)
[2022-04-12] MEDS: hydrOXYzine PAMOATE 50 MG CAPSULE (FP) PO PRN ×2 (15:30→21:35)
[2022-04-12] MEDS: THIAMINE HCL 100 MG TABLET (FP) PO SCH (21:34)
[2022-04-13] MEDS: hydrOXYzine PAMOATE 50 MG CAPSULE (FP) PO PRN ×3 (06:23→21:18)
[2022-04-13] MEDS: methaDONE 40 MG, methaDONE 20 MG PO SCH (06:23)
[2022-04-13] MEDS: NICOTINE 21 MG/24 HOURS TOPICAL PATCH TD SCH (09:22)
[2022-04-13] MEDS: PRENATAL VITAMINS W/ FOLIC ACID TABLET (FP) PO SCH (09:22)
[2022-04-13] MEDS: THIAMINE HCL 100 MG TABLET (FP) PO SCH (21:18)
[2022-04-14] MEDS: methaDONE 40 MG, methaDONE 20 MG PO SCH (06:16)
[2022-04-14] MEDS: hydrOXYzine PAMOATE 50 MG CAPSULE (FP) PO PRN ×3 (06:17→21:27)
[2022-04-14] MEDS: PRENATAL VITAMINS W/ FOLIC ACID TABLET (FP) PO SCH (09:14)
[2022-04-14] MEDS: NICOTINE 21 MG/24 HOURS TOPICAL PATCH TD SCH (09:14)
[2022-04-14] MEDS: THIAMINE HCL 100 MG TABLET (FP) PO SCH (21:26)
[2022-04-14] MEDS: SUVOREXANT 10 MG TABLET PO PRN (21:26)
[2022-04-14] MEDS: IBUPROFEN 400 MG TABLET (FP) PO PRN (21:26)
[2022-04-15] MEDS: methaDONE 40 MG, methaDONE 20 MG PO SCH (06:31)
[2022-04-15] MEDS: hydrOXYzine PAMOATE 50 MG CAPSULE (FP) PO PRN ×3 (06:31→21:23)
[2022-04-15] MEDS: PRENATAL VITAMINS W/ FOLIC ACID TABLET (FP) PO SCH (09:10)
[2022-04-15] MEDS: NICOTINE 21 MG/24 HOURS TOPICAL PATCH TD SCH (09:10)
[2022-04-15] MEDS: ACAMPROSATE CALCIUM 333 MG TABLET.DR PO SCH ×2 (14:04→21:22)
[2022-04-15] MEDS: THIAMINE HCL 100 MG TABLET (FP) PO SCH (21:22)
[2022-04-15] MEDS: SUVOREXANT 10 MG TABLET PO PRN (21:23)
[2022-04-16] MEDS: ACAMPROSATE CALCIUM 333 MG TABLET.DR PO SCH ×3 (06:04→21:11)
[2022-04-16] MEDS: hydrOXYzine PAMOATE 50 MG CAPSULE (FP) PO PRN ×3 (06:04→21:14)
[2022-04-16] MEDS: methaDONE 40 MG, methaDONE 20 MG PO SCH (06:04)
[2022-04-16] MEDS: PRENATAL VITAMINS W/ FOLIC ACID TABLET (FP) PO SCH (09:26)
[2022-04-16] MEDS: NICOTINE 21 MG/24 HOURS TOPICAL PATCH TD SCH (09:26)
[2022-04-16] MEDS: THIAMINE HCL 100 MG TABLET (FP) PO SCH (21:11)
[2022-04-16] MEDS: SUVOREXANT 10 MG TABLET PO PRN (21:13)
[2022-04-17] MEDS: methaDONE 40 MG, methaDONE 20 MG PO SCH (06:29)
[2022-04-17] MEDS: ACAMPROSATE CALCIUM 333 MG TABLET.DR PO SCH ×3 (06:29→21:17)
[2022-04-17] MEDS: hydrOXYzine PAMOATE 50 MG CAPSULE (FP) PO PRN ×3 (06:29→21:19)
[2022-04-17] MEDS: PRENATAL VITAMINS W/ FOLIC ACID TABLET (FP) PO SCH (09:42)
[2022-04-17] MEDS: NICOTINE 21 MG/24 HOURS TOPICAL PATCH TD SCH (09:43)
[2022-04-17] MEDS: ACETAMINOPHEN 325 MG TABLET (FP) PO PRN (09:43)
[2022-04-17] MEDS: THIAMINE HCL 100 MG TABLET (FP) PO SCH (21:17)
[2022-04-17] MEDS: SUVOREXANT 10 MG TABLET PO PRN (21:19)
[2022-04-18] MEDS: methaDONE 40 MG, methaDONE 20 MG PO SCH (06:18)
[2022-04-18] MEDS: ACAMPROSATE CALCIUM 333 MG TABLET.DR PO SCH ×3 (06:19→21:18)
[2022-04-18] MEDS: NICOTINE 21 MG/24 HOURS TOPICAL PATCH TD SCH (09:42)
[2022-04-18] MEDS: PRENATAL VITAMINS W/ FOLIC ACID TABLET (FP) PO SCH (09:42)
[2022-04-18] MEDS: hydrOXYzine PAMOATE 50 MG CAPSULE (FP) PO PRN ×2 (09:42→21:18)
[2022-04-18] MEDS: IBUPROFEN 400 MG TABLET (FP) PO PRN ×2 (16:11→23:14)
[2022-04-18] MEDS: THIAMINE HCL 100 MG TABLET (FP) PO SCH (21:18)
[2022-04-18] MEDS: SUVOREXANT 10 MG TABLET PO PRN (21:19)
[2022-04-19] MEDS: hydrOXYzine PAMOATE 50 MG CAPSULE (FP) PO PRN ×3 (06:05→21:26)
[2022-04-19] MEDS: IBUPROFEN 400 MG TABLET (FP) PO PRN ×3 (06:05→21:48)
[2022-04-19] MEDS: ACAMPROSATE CALCIUM 333 MG TABLET.DR PO SCH ×3 (06:05→21:24)
[2022-04-19] MEDS: methaDONE 40 MG, methaDONE 20 MG PO SCH (06:07)
[2022-04-19] MEDS: PRENATAL VITAMINS W/ FOLIC ACID TABLET (FP) PO SCH (09:31)
[2022-04-19] MEDS: NICOTINE 21 MG/24 HOURS TOPICAL PATCH TD SCH (09:31)
[2022-04-19] MEDS: THIAMINE HCL 100 MG TABLET (FP) PO SCH (21:24)
[2022-04-19] MEDS: SUVOREXANT 10 MG TABLET PO PRN (21:26)
[2022-04-20] MEDS: ACAMPROSATE CALCIUM 333 MG TABLET.DR PO SCH ×3 (06:07→21:17)
[2022-04-20] MEDS: methaDONE 40 MG, methaDONE 20 MG PO SCH (06:07)
[2022-04-20] MEDS: IBUPROFEN 400 MG TABLET (FP) PO PRN ×3 (06:10→21:18)
[2022-04-20] MEDS: PRENATAL VITAMINS W/ FOLIC ACID TABLET (FP) PO SCH (09:59)
[2022-04-20] MEDS: hydrOXYzine PAMOATE 50 MG CAPSULE (FP) PO PRN (09:59)
[2022-04-20] MEDS: NICOTINE 21 MG/24 HOURS TOPICAL PATCH TD SCH (09:59)
[2022-04-20] MEDS: THIAMINE HCL 100 MG TABLET (FP) PO SCH (21:17)
[2022-04-20] MEDS: SUVOREXANT 10 MG TABLET PO PRN (21:21)
[2022-04-21] MEDS: ACAMPROSATE CALCIUM 333 MG TABLET.DR PO SCH ×3 (06:06→21:28)
[2022-04-21] MEDS: methaDONE 40 MG, methaDONE 20 MG PO SCH (06:07)
[2022-04-21] MEDS: ACETAMINOPHEN 325 MG TABLET (FP) PO PRN (06:08)
[2022-04-21] MEDS: PRENATAL VITAMINS W/ FOLIC ACID TABLET (FP) PO SCH (09:50)
[2022-04-21] MEDS: NICOTINE 21 MG/24 HOURS TOPICAL PATCH TD SCH (09:50)
[2022-04-21] MEDS: hydrOXYzine PAMOATE 50 MG CAPSULE (FP) PO PRN ×2 (09:51→21:30)
[2022-04-21] MEDS: IBUPROFEN 400 MG TABLET (FP) PO PRN (13:51)
[2022-04-21] MEDS: THIAMINE HCL 100 MG TABLET (FP) PO SCH (21:28)
[2022-04-21] MEDS: SUVOREXANT 10 MG TABLET PO PRN (21:30)
[2022-04-22] MEDS: IBUPROFEN 400 MG TABLET (FP) PO PRN ×2 (04:20→21:23)
[2022-04-22] MEDS: methaDONE 40 MG, methaDONE 20 MG PO SCH (06:18)
[2022-04-22] MEDS: ACAMPROSATE CALCIUM 333 MG TABLET.DR PO SCH ×3 (06:19→21:21)
[2022-04-22 08:19] VITALS: RESP 18
[2022-04-22] MEDS: PRENATAL VITAMINS W/ FOLIC ACID TABLET (FP) PO SCH (09:53)
[2022-04-22] MEDS: NICOTINE 21 MG/24 HOURS TOPICAL PATCH TD SCH (09:54)
[2022-04-22] MEDS ORDERED: BENZOCAINE 20 % GEL TUBE MM PRN (11:06)
[2022-04-22] MEDS: hydrOXYzine PAMOATE 50 MG CAPSULE (FP) PO PRN ×3 (14:03→22:28)
[2022-04-22] MEDS: AMOX TR/POT CLAV 875MG/125MG TABLETS (FP) PO SCH (18:01)
[2022-04-22] MEDS: THIAMINE HCL 100 MG TABLET (FP) PO SCH (21:21)
[2022-04-22] MEDS: SUVOREXANT 10 MG TABLET PO PRN (21:22)
[2022-04-23] MEDS: ACAMPROSATE CALCIUM 333 MG TABLET.DR PO SCH ×3 (06:08→21:32)
[2022-04-23] MEDS: methaDONE 40 MG, methaDONE 20 MG PO SCH (06:08)
[2022-04-23] MEDS: hydrOXYzine PAMOATE 50 MG CAPSULE (FP) PO PRN ×3 (06:09→21:32)
[2022-04-23] MEDS: AMOX TR/POT CLAV 875MG/125MG TABLETS (FP) PO SCH ×2 (07:11→16:31)
[2022-04-23] MEDS: PRENATAL VITAMINS W/ FOLIC ACID TABLET (FP) PO SCH (09:58)
[2022-04-23] MEDS: NICOTINE 21 MG/24 HOURS TOPICAL PATCH TD SCH (09:58)
[2022-04-23] MEDS: IBUPROFEN 400 MG TABLET (FP) PO PRN ×2 (10:00→16:30)
[2022-04-23] MEDS: THIAMINE HCL 100 MG TABLET (FP) PO SCH (21:32)
[2022-04-23] MEDS: SUVOREXANT 10 MG TABLET PO PRN (21:32)
[2022-04-24] MEDS: methaDONE 40 MG, methaDONE 20 MG PO SCH (06:14)
[2022-04-24] MEDS: ACAMPROSATE CALCIUM 333 MG TABLET.DR PO SCH ×3 (06:14→21:37)
[2022-04-24] MEDS: ACETAMINOPHEN 325 MG TABLET (FP) PO PRN (06:16)
[2022-04-24] MEDS: AMOX TR/POT CLAV 875MG/125MG TABLETS (FP) PO SCH ×2 (07:08→17:29)
[2022-04-24] MEDS: NICOTINE 21 MG/24 HOURS TOPICAL PATCH TD SCH (10:08)
[2022-04-24] MEDS: PRENATAL VITAMINS W/ FOLIC ACID TABLET (FP) PO SCH (10:08)
[2022-04-24] MEDS: IBUPROFEN 400 MG TABLET (FP) PO PRN (10:10)
[2022-04-24] MEDS: hydrOXYzine PAMOATE 50 MG CAPSULE (FP) PO PRN ×3 (12:19→21:40)
[2022-04-24] MEDS: THIAMINE HCL 100 MG TABLET (FP) PO SCH (21:37)
[2022-04-24] MEDS: SUVOREXANT 10 MG TABLET PO PRN (21:38)
[2022-04-25] MEDS: IBUPROFEN 400 MG TABLET (FP) PO PRN ×2 (01:45→15:49)
[2022-04-25] MEDS: methaDONE 40 MG, methaDONE 20 MG PO SCH (06:03)
[2022-04-25] MEDS: ACAMPROSATE CALCIUM 333 MG TABLET.DR PO SCH ×3 (06:03→21:32)
[2022-04-25] MEDS: AMOX TR/POT CLAV 875MG/125MG TABLETS (FP) PO SCH ×2 (07:50→17:43)
[2022-04-25] MEDS: hydrOXYzine PAMOATE 50 MG CAPSULE (FP) PO PRN ×3 (10:04→21:34)
[2022-04-25] MEDS: PRENATAL VITAMINS W/ FOLIC ACID TABLET (FP) PO SCH (10:04)
[2022-04-25] MEDS: NICOTINE 21 MG/24 HOURS TOPICAL PATCH TD SCH (10:04)
[2022-04-25] MEDS: THIAMINE HCL 100 MG TABLET (FP) PO SCH (21:32)
[2022-04-25] MEDS: SUVOREXANT 10 MG TABLET PO PRN (21:33)
[2022-04-26] MEDS: hydrOXYzine PAMOATE 50 MG CAPSULE (FP) PO PRN ×3 (06:14→21:25)
[2022-04-26] MEDS: methaDONE 40 MG, methaDONE 20 MG PO SCH (06:16)
[2022-04-26] MEDS: ACAMPROSATE CALCIUM 333 MG TABLET.DR PO SCH ×3 (06:16→21:25)
[2022-04-26] MEDS: AMOX TR/POT CLAV 875MG/125MG TABLETS (FP) PO SCH ×2 (07:15→18:05)
[2022-04-26] MEDS: PRENATAL VITAMINS W/ FOLIC ACID TABLET (FP) PO SCH (10:00)
[2022-04-26] MEDS: NICOTINE 21 MG/24 HOURS TOPICAL PATCH TD SCH (10:00)
[2022-04-26] MEDS: ACETAMINOPHEN 325 MG TABLET (FP) PO PRN (13:10)
[2022-04-26] MEDS: SUVOREXANT 10 MG TABLET PO PRN (21:24)
[2022-04-26] MEDS: THIAMINE HCL 100 MG TABLET (FP) PO SCH (21:25)
[2022-04-26] MEDS: IBUPROFEN 400 MG TABLET (FP) PO PRN (21:26)
[2022-04-27] MEDS: methaDONE 40 MG, methaDONE 20 MG PO SCH (06:54)
[2022-04-27] MEDS: hydrOXYzine PAMOATE 50 MG CAPSULE (FP) PO PRN ×3 (06:54→21:34)
[2022-04-27] MEDS: ACAMPROSATE CALCIUM 333 MG TABLET.DR PO SCH ×3 (06:55→21:34)
[2022-04-27] MEDS: AMOX TR/POT CLAV 875MG/125MG TABLETS (FP) PO SCH ×2 (07:36→17:52)
[2022-04-27] MEDS: PRENATAL VITAMINS W/ FOLIC ACID TABLET (FP) PO SCH (10:00)
[2022-04-27] MEDS: NICOTINE 21 MG/24 HOURS TOPICAL PATCH TD SCH (10:00)
[2022-04-27] MEDS: IBUPROFEN 400 MG TABLET (FP) PO PRN (16:27)
[2022-04-27] MEDS: THIAMINE HCL 100 MG TABLET (FP) PO SCH (21:34)
[2022-04-27] MEDS ORDERED: SUVOREXANT 10 MG TABLET PO ONE (22:04)
[2022-04-28] MEDS: IBUPROFEN 400 MG TABLET (FP) PO PRN (03:12)
[2022-04-28] MEDS: methaDONE 40 MG, methaDONE 20 MG PO SCH (06:12)
[2022-04-28] MEDS: ACAMPROSATE CALCIUM 333 MG TABLET.DR PO SCH ×3 (06:12→21:35)
[2022-04-28] MEDS: hydrOXYzine PAMOATE 50 MG CAPSULE (FP) PO PRN ×2 (06:13→21:35)
[2022-04-28] MEDS: AMOX TR/POT CLAV 875MG/125MG TABLETS (FP) PO SCH ×2 (08:01→17:15)
[2022-04-28] MEDS: PRENATAL VITAMINS W/ FOLIC ACID TABLET (FP) PO SCH (09:25)
[2022-04-28] MEDS: NICOTINE 21 MG/24 HOURS TOPICAL PATCH TD SCH (09:25)
[2022-04-28] MEDS: THIAMINE HCL 100 MG TABLET (FP) PO SCH (21:35)
[2022-04-28] MEDS ORDERED: SUVOREXANT 10 MG TABLET PO PRN (22:00)
[2022-04-29] MEDS ORDERED: methaDONE HCL 10 MG TABLET PO SCH (06:15)
[2022-04-29] MEDS: ACAMPROSATE CALCIUM 333 MG TABLET.DR PO SCH (06:38)
[2022-04-29] MEDS ORDERED: methaDONE 40 MG, methaDONE 20 MG PO SCH (06:45)
[2022-04-29] MEDS: AMOX TR/POT CLAV 875MG/125MG TABLETS (FP) PO SCH (07:27)
[2022-04-29 08:26] VITALS: BP 128/85; PULSE 79; TEMP 97.7
[2022-04-29] MEDS: IBUPROFEN 400 MG TABLET (FP) PO PRN (08:39)
[2022-04-29] MEDS: PRENATAL VITAMINS W/ FOLIC ACID TABLET (FP) PO SCH (09:13)
[2022-04-29] MEDS: NICOTINE 21 MG/24 HOURS TOPICAL PATCH TD SCH (09:22)
== END 2022-04-29 09:20 | disposition home or self-care (01) | DRG 772 ==
LOC: YASAS 11:56 → Y5N 21:53
PROVIDERS: ADMIT Allergy & Immunology; ATTEND Allergy & Immunology
PROC: HZ42ZZZ Group Counseling for Substance Abuse Treatment, Cognitive-Behavioral (ICD-10-PCS; principal; 2022-04-07)
DX: F11.20 Opioid dependence, uncomplicated (principal); F10.20 Alcohol dependence, uncomplicated; F13.20 Sedative, hypnotic or anxiolytic dependence, uncomplicated; F17.210 Nicotine dependence, cigarettes, uncomplicated; F10.282 Alcohol dependence with alcohol-induced sleep disorder; F10.24 Alcohol dependence with alcohol-induced mood disorder; F41.9 Anxiety disorder, unspecified; F32.A Depression, unspecified; I12.9 Hypertensive chronic kidney disease with stage 1 through stage 4 chronic kidney disease, or unspecified chronic kidney disease; N28.9 Disorder of kidney and ureter, unspecified; Z94.0 Kidney transplant status; G47.00 Insomnia, unspecified; K08.89 Other specified disorders of teeth and supporting structures; R76.11 Nonspecific reaction to tuberculin skin test without active tuberculosis; R79.89 Other specified abnormal findings of blood chemistry; R74.01 Elevation of levels of liver transaminase levels; Z86.19 Personal history of other infectious and parasitic diseases
CPT/HCPCS: 36415; 71046-TC-FY; 80053; 81003; 85027; 86780; 87811; C9803-CS; U0003; U0005